=== PATIENT | female | born 1965 | race Caucasian/White ===

== ENCOUNTER → 2021-10-13 11:46 | Outpatient (CLI) | payer BC, SELFPAY ==
--- NOTE | ~2021-10-13 | MM_ITS ---
EXAMINATION: MM screening basilia BI w brando HISTORY: Screening mammogram TECHNIQUE: Craniocaudal and mediolateral oblique 3-D tomosynthesis images were obtained and synthetic 2-D images were generated. CAD analysis was submitted and interpreted. COMPARISON: 09/17/2015, 07/05/2014 bilateral screening mammogram examinations BREAST PARENCHYMAL COMPOSITION: The breasts are heterogeneously dense, which may obscure small masses . FINDINGS: There is no evidence of suspicious mass, calcification, or architectural distortion to sugg est malignancy in either breast. There has been no suspicious interval change. IMPRESSION: 1. No mammographic evidence of malignancy. 2. Recommend routine screening mammography in one year. BI-RADS Category 1: Negative Reviewed, dictated and finalized at location A. [facility]
== END ==
PROVIDERS: PCP Family Medicine; Visit Provider Obstetrics & Gynecology Gynecology
DX: Z12.31 Encounter for screening mammogram for malignant neoplasm of breast (principal)
CPT/HCPCS: 77063; 77067

== ENCOUNTER → 2022-05-20 09:28 | Outpatient (CLI) | payer BC, SELFPAY ==
--- NOTE | ~2022-05-20 | XR_ITS ---
EXAMINATION: XR chest 2V 05/20/2022 10:26 INDICATION: Cough PROCEDURE: 2 view chest COMPARISON: 06/14/2006 FINDINGS: The lungs are clear. The cardiomediastinal silhouette is within normal limits. There are no pleural effusions. There is no pneumothorax suspected. IMPRESSION: 1: NO ACUTE CARDIOPULMONARY DISEASE. Reviewed, dictated and finalized at location A.
== END ==
PROVIDERS: PCP Family Medicine; Visit Provider Family Medicine
DX: R05.9 Cough, unspecified (principal)
CPT/HCPCS: 71046

== ENCOUNTER → 2022-07-30 09:24 | Outpatient (CLI) | payer BC, SELFPAY ==
--- NOTE | ~2022-07-30 | DEXA_ITS ---
Bone Density Report Name: DEBORAH ARAIZA Age: 57 Sex: Female Ethnicity: White Date of : 1965 Indication: postmenopausal; screening for osteoporosis; height loss; history of glucocorticoids; Referring Provider: JHONATHAN CANALES Study: Bone densitometry was performed. Exam Date: July 30, 2022 Accession number: [id number] Bone Density: Region BMD T-score Z-score Classification AP Spine (L1-L4) 0.759 -2.6 -1.5 Osteoporosis Femoral Neck (Left) 0.618 -2.1 -1.0 Osteopenia Total Hip (Left) 0.735 -1.7 -1.0 Osteopenia Femoral Neck (Right) 0.587 -2.4 -1.3 Osteopenia Total Hip (Right) 0.743 -1.6 -0.9 Osteopenia Total Hip Mean 0.739 -1.7 -1.0 Osteopenia World Health Organization criteria for BMD impression classify patients as: Normal (T-score at or above -1.0), Osteopenia (T-score between -1.0 and -2.5), or Osteoporosis (T-score at or below -2.5). 10-year Fracture Risk: FRAX not reported because: Some T-score for Spine Total or Hip Total or Femoral Neck at or below -2.5 Clinical Information Provided by Patient: Has taken Glucocorticoids Has used the following medications: Prolia (i.e. denosumab), Calcium Patient maximum height was 59.5 Menopause Age: 53 No regular weight bearing exercise Does not regularly consume dairy products Drinks caffeinated beverages Onset of menses at age 13 Number of children 2 Impression: The patient has osteoporosis, based on the Total Spine T-score. The patient has risk factors, including: history of glucocorticoid therapy. Discussion: INCREASED RISK OF FRACTURE. BONE DENSITY IS UNDESIRABLY LOW AT ONE OR MORE SKELETAL SITES, CONSISTENT WITH POSTMENOPAUSAL OSTEOPOROSIS. This patient's lowest T-score meets the World Health Organization's (WHO) criteria for osteoporosis at one or more sites (T-score -2.5 or below). In untreated patients, the risk of osteoporotic fracture increases approximately two-fold for each 1.0 SD decrease in T-score. Low bone density is not the only risk factor for fracture; also consider factors such as patient's age, frailty or poor health, risk of falling, risk of injury, previous osteoporotic fracture, family history of osteoporosis, cigarette smoking, low body weight, etc. Not everyone with low bone mineral density has osteoporosis; osteomalacia and other metabolic bone disorders should also be considered. Patients who have osteoporosis should be evaluated for specific diseases and conditions (secondary causes) that may cause or contribute to bone loss. The [place] [employer] Endocrinologists (AACE) and National Osteoporosis Foundation (NOF) recommend pharmacologic intervention for all postmenopausal women whose T-score is in this range. The patient should follow a healthful lifestyle (good nutrition with adequate calcium and vitamin
== END ==
PROVIDERS: PCP Family Medicine; Visit Provider Obstetrics & Gynecology Gynecology
DX: M81.0 Age-related osteoporosis without current pathological fracture (principal); Z78.0 Asymptomatic menopausal state; M85.852 Other specified disorders of bone density and structure, left thigh; M85.851 Other specified disorders of bone density and structure, right thigh
CPT/HCPCS: 77080

== ENCOUNTER → 2023-01-05 11:20 | Outpatient (CLI) | payer BC, SELFPAY ==
--- NOTE | ~2023-01-05 | MM_ITS ---
EXAMINATION: MM screening basilia BI w brando HISTORY: Screening mammogram TECHNIQUE: Craniocaudal and mediolateral oblique 3-D tomosynthesis images were obtained and synthetic 2-D images were generated. CAD analysis was submitted and interpreted. COMPARISON: 10/13/2021, 09/2015 bilateral screening mammogram examinations BREAST PARENCHYMAL COMPOSITION: The breasts are heterogeneously dense, which may obscure small masses . FINDINGS: There is no evidence of suspicious mass, calcification, or architectural distortion to sugg est malignancy in either breast. There has been no suspicious interval change. IMPRESSION: 1. No mammographic evidence of malignancy. 2. Recommend routine screening mammography in one year. BI-RADS Category 1: Negative Reviewed, dictated and finalized at location A. [facility]
== END ==
PROVIDERS: PCP Family Medicine; Visit Provider Obstetrics & Gynecology Gynecology
DX: Z12.31 Encounter for screening mammogram for malignant neoplasm of breast (principal)
CPT/HCPCS: 77063; 77067

== ENCOUNTER → 2023-04-29 08:47 | Outpatient (CLI) | payer BC, SELFPAY ==
--- NOTE | ~2023-04-29 | US_ITS ---
EXAMINATION: US abdomen limited DATE: 04/29/2023 09:10 INDICATION: Abnormal levels of other serum enzymes TECHNIQUE: Multiple grayscale and Doppler ultrasound images of limited portions of the abdomen were o btained. COMPARISON: None available. FINDINGS: The visualized portions of the pancreas are normal. The liver is normal with normal echogen icity and echotexture. No surface nodularity. Normal hepatopetal flow in the main portal vein. The ga llbladder is normal normal size, with intraluminal stones. No wall thickening or pericholecystic flui d. The common bile duct measures 5 mm. There was no sonographic Harrison sign. IMPRESSION: Cholelithiasis, otherwise normal limited abdominal ultrasound findings. Reviewed, dictated and finalized at location K.
== END ==
PROVIDERS: PCP Family Medicine
DX: R74.8 Abnormal levels of other serum enzymes (principal); R74.01 Elevation of levels of liver transaminase levels; K80.20 Calculus of gallbladder without cholecystitis without obstruction
CPT/HCPCS: 76705

== ENCOUNTER 2024-01-17 00:59 | Day surgery (SDC) | payer BC, SELFPAY ==
[2023-11-24 09:50] VITALS: BMI 23.5
--- NOTE | 2023-11-25 10:18 | SUR.PREOP ---
Patient called regarding upcoming procedure. Reviewed preop instructions, appointment times, and procedure prep.
--- NOTE | 2023-11-25 10:19 | SUR.PREOP ---
Patient called regarding upcoming procedure. Reviewed preop instructions, appointment times, and procedure prep.
--- NOTE | 2023-11-28 10:10 | SUR.PREOP ---
Pt called stating that she has upper respiratory symptoms and needs to cancel her procedure for 11/29. Patient has a barky cough and slightly hoarse. Instructed patient to go see her PCP if her symptoms didn't improve or if she was short of breathe. Patient voiced understanding. Rescheduled for 01/03.
[2023-12-29 16:29] VITALS: BMI 23.5
--- NOTE | 2024-01-13 14:01 | SUR.PREOP ---
Patient called regarding upcoming procedure. Message left regarding preop instructions, appointment times, and procedure prep.
[2024-01-17 08:07] VITALS: BP 116/66; PULSE 68; RESP 16; TEMP 35.8; O2SAT 98; BMI 22.8
[2024-01-17] MEDS: LACTATED RINGERS 1,000 ML 150 ML IV CONT (08:25)
--- NOTE | 2024-01-17 10:11 | PM.HPGS ---
History of Present Illness History of Present Illness Consent: Risks, benefits, and alternatives have been discussed and questions answered. Patient agrees to proceed with procedure. Chief complaint: Abdom.distension(Gaseous), Epigastric pain Narrative: Aggie Vela is a 58 year old female with dyspepsia and nausea after eating, never had egd. Also constipation for which she is taking stool softeners, had colonoscopy 2016 with ? mild microscopic colitis Review of Systems Constitutional: Constitutional: Denies headache(s) and Denies weakness Eyes: Eyes: Denies blurry vision ENT: Reports Normal hearing present, Denies headache(s) and Denies neck pain Cardiovascular: Cardiovascular: Denies chest pain and Denies dyspnea Respiratory: Respiratory: Denies dyspnea Gastrointestinal: Gastrointestinal: Reports no additional gastrointestinal complaints Genitourinary: Genitourinary: Denies dysuria Musculoskeletal: Musculoskeletal: Denies neck pain Integumentary/Breasts: Skin/Breast: Denies dry skin Neurologic: Reports Normal hearing present, Denies headache(s) and Denies weakness Psychiatric: Psychiatric: Denies anxiety Endocrine: Endocrine: Denies change in body appearance Hematologic/Lymphatic: Hematologic/Lymphatic: Denies easy bleeding Allergic/Immunologic: Allergic/Immunologic: Denies urticaria PMFSH Past Medical History Medical History (Updated 11/22/23 @ 10:21 by Zaira Pantoja APRN) ADHD Altered bowel habits Bloating Colitis Dyspepsia Gallstones IBS (irritable bowel syndrome) Lupus Surgical History Surgical History (Updated 11/22/23 @ 10:21 by Zaira Pantoja APRN) Hx of bilateral cataract extraction Social History Social History Smoking status: Never smoker Alcohol intake: current Substance use: never Living arrangements: with family Spiritual care concerns: No Meds Home Medications and Allergies Home Medications Medication Instructions Recorded Confirmed Type albuterol sulfate 90 mcg/actuation 1 puff inhalation Q4H PRN 11/17/23 01/17/24 History aerosol inhaler Shortness Of Breath celecoxib 100 mg capsule (Celebrex) 100 mg PO DAILY 11/17/23 01/17/24 History cetirizine 10 mg capsule (Zyrtec) 10 mg PO DAILY 11/17/23 01/17/24 History denosumab 60 mg/mL subcutaneous 60 mg subcut [id number] 11/17/23 01/17/24 History syringe (Prolia) dextroamphetamine-amphetamine 20 10 - 20 mg PO DAILY 11/17/23 01/17/24 History mg tablet (Adderall) fluoxetine 10 mg capsule (Prozac) 10 mg PO DAILY 11/17/23 01/17/24 History minoxidil 2 % topical solution 1 ml topical DAILY 11/17/23 01/17/24 History (Rogaine) Align Pre And Pro 2 gummy PO DAILY PRN Constipation 11/24/23 01/17/24 History Nutrafol 4 cap PO DAILY 11/24/23 01/17/24 History ascorbic acid (vitamin C) 1,000 mg 1 g PO DAILY 11/24/23 01/17/24 History capsule biotin 5,000 mcg chewable tablet 5,000 mcg PO DAILY 11/24/23 01/17/24 History cholecalciferol (vitamin D3) 125 125 mcg PO DAILY 11/24/23 01/17/24 History mcg (5,000 unit) tablet (Vitamin D3) mecobalamin (vitamin B12) 1,000 1,000 mcg PO DAILY 11/24/23 01/17/24 History mcg chewable tablet polyethylene glycol 3350 17 17 g PO DAILY 11/24/23 01/17/24 History gram/dose oral powder (Miralax) Allergies Allergy/AdvReac Type Severity Reaction Status Date / Time erythromycin base Allergy Intermediate Hives Verified 01/17/24 08:14 Penicillins Allergy Intermediate Hives Verified 01/17/24 08:14 Vital Signs Vital Signs - 24 hr 01/17/24 08:07 Temperature 96.5 F L Pulse Rate 68 Respiratory Rate 16 Blood Pressure 116/66 Pulse Oximetry 98 Oxygen Delivery Room Air Exam Const: General: comfortable and no acute distress HENMT: Face/Nose/Sinus: Normal nares present Eyes: General: appearance normal, both eyes and all related structures Neck: Neck: no JVD Resp: Auscultation: clear to auscultation bilaterally Cardio: Rate: regular ra
--- NOTE | 2024-01-17 10:24 | SUR.OPER ---
EGD START: 1017; END: 1020. COLONOSCOPY START: 1024; END: 1032.
[2024-01-17 10:35] VITALS: BP 103/62; PULSE 67; RESP 15; O2SAT 100
[2024-01-17 10:45] VITALS: BP 111/72; PULSE 63; RESP 15; O2SAT 100
[2024-01-17 10:55] VITALS: BP 122/75; PULSE 60; RESP 22; O2SAT 100
--- NOTE | 2024-01-18 13:01 | WPDANESEPPF ---
Anes - Initial Pre Proc Eval Procedure: Operation Date: 01/17/24 09:30 Proposed Procedures p Esophagogastroduodenoscopy & Colonoscopy - Woody Reyes MD Date/Time: 01/18/24 13:01 Surgeon: Woody Reyes MD Pre Op Diagnosis: Abdom.distension(Gaseous), Epigastric pain Patient Data Age: 58 Gender: F Height: 1.5 m Weight: 51.3 kg Last Vital Signs Temp 96.5 F L 01/17/24 08:07 Pulse 60 01/17/24 10:55 Resp 22 H 01/17/24 10:55 BP 122/75 01/17/24 10:55 Pulse Ox 100 01/17/24 10:55 O2 Del Method Room Air 01/17/24 10:55 Allergies Allergy/AdvReac Type Severity Reaction Status Date / Time erythromycin base Allergy Intermediate Hives Verified 01/17/24 08:14 Penicillins Allergy Intermediate Hives Verified 01/17/24 08:14 Home Medications Medication Instructions Recorded Confirmed Type albuterol sulfate 90 mcg/actuation 1 puff inhalation Q4H PRN 11/17/23 01/17/24 History aerosol inhaler Shortness Of Breath celecoxib 100 mg capsule (Celebrex) 100 mg PO DAILY 11/17/23 01/17/24 History cetirizine 10 mg capsule (Zyrtec) 10 mg PO DAILY 11/17/23 01/17/24 History denosumab 60 mg/mL subcutaneous 60 mg subcut [id number] 11/17/23 01/17/24 History syringe (Prolia) dextroamphetamine-amphetamine 20 10 - 20 mg PO DAILY 11/17/23 01/17/24 History mg tablet (Adderall) fluoxetine 10 mg capsule (Prozac) 10 mg PO DAILY 11/17/23 01/17/24 History minoxidil 2 % topical solution 1 ml topical DAILY 11/17/23 01/17/24 History (Rogaine) Align Pre And Pro 2 gummy PO DAILY PRN Constipation 11/24/23 01/17/24 History Nutrafol 4 cap PO DAILY 11/24/23 01/17/24 History ascorbic acid (vitamin C) 1,000 mg 1 g PO DAILY 11/24/23 01/17/24 History capsule biotin 5,000 mcg chewable tablet 5,000 mcg PO DAILY 11/24/23 01/17/24 History cholecalciferol (vitamin D3) 125 125 mcg PO DAILY 11/24/23 01/17/24 History mcg (5,000 unit) tablet (Vitamin D3) mecobalamin (vitamin B12) 1,000 1,000 mcg PO DAILY 11/24/23 01/17/24 History mcg chewable tablet polyethylene glycol 3350 17 17 g PO DAILY 11/24/23 01/17/24 History gram/dose oral powder (Miralax) Patient hx anesthesia problems: none Family hx anesthesia problems: none Results Review: All pre-operative results and documents have been reviewed as part of the pre-operative evaluation. PMFSH Past Medical History Medical History (Updated 11/22/23 @ 10:21 by Zaira Pantoja APRN) ADHD Altered bowel habits Bloating Colitis Dyspepsia Gallstones IBS (irritable bowel syndrome) Lupus Surgical History Surgical History (Updated 11/22/23 @ 10:21 by Zaira Pantoja APRN) Hx of bilateral cataract extraction Social History Social History Smoking status: Never smoker Alcohol intake: current Substance use: never Living arrangements: with family Spiritual care concerns: No Anes - Eval Final PreProcedure Day of Procedure 01/18/24 13:01 Patient weight: normal Heart: regular rate and rhythm Lungs: clear to auscultation Airway: Mallampati scale class II Neurological: alert and oriented Last oral intake: >/= 8 hours ASA classification: II Emergent: no Anesthetic plan: proceed Anesthesia type and monitoring: general GIVS and standard monitoring Results Review: All pre-operative results and documents have been reviewed as part of the pre-operative evaluation. Informed Consent: The patient's anesthetic plan and its attendant risks and benefits were discussed with the patient/family/POA. Questions were solicited and answers provided to the satisfaction of the patient/family/POA.
== END 2024-01-17 11:02 | disposition home or self-care (01) ==
PROVIDERS: PCP Family Medicine; Visit Provider Internal Medicine Gastroenterology
PROC: 0DJ08ZZ Inspection of Upper Intestinal Tract, Via Natural or Artificial Opening Endoscopic (ICD-10-PCS; CPT 43235; principal; 2024-01-17 09:30)
DX: K52.832 Lymphocytic colitis (principal); K64.8 Other hemorrhoids; K29.50 Unspecified chronic gastritis without bleeding; B96.81 Helicobacter pylori [H. pylori] as the cause of diseases classified elsewhere; K80.20 Calculus of gallbladder without cholecystitis without obstruction; F90.9 Attention-deficit hyperactivity disorder, unspecified type; M32.9 Systemic lupus erythematosus, unspecified; Z79.51 Long term (current) use of inhaled steroids
CPT/HCPCS: 45380; 43239; 88305; 88342; J2405; J2704; J3010; J7120

== ENCOUNTER 2024-02-28 11:09 | Outpatient (CLI) | payer BC, SELFPAY ==
--- NOTE | ~2024-02-28 | MM_ITS ---
EXAMINATION: MM screening basilia BI w brando HISTORY: Screening TECHNIQUE: Craniocaudal and mediolateral oblique 3-D tomosynthesis images were obtained and synthetic 2-D images were generated. CAD analysis was submitted and interpreted. COMPARISON: Comparison to multiple prior studies sequentially, with oldest reviewed study dated 09/16. BREAST PARENCHYMAL COMPOSITION: Not dense: There are scattered areas of fibroglandular density. FINDINGS: There are developing nodular asymmetries medially in the left breast on CC view. There is a developing high density nodule in the lower aspect of the right breast on MLO view, middle third. IMPRESSION: 1. Developing left breast asymmetries and right breast mass. 2. Additional mammographic views and possible breast ultrasound are recommended. BI-RADS CATEGORY 0 - INCOMPLETE STUDY, NEED ADDITIONAL IMAGING EVALUATION. Reviewed, dictated and finalized at location B. IMPRESSION: 1. Developing left breast asymmetries and right breast mass. 2. Additional mammographic views and possible breast ultrasound are recommended . BI-RADS CATEGORY 0 - INCOMPLETE STUDY, NEED ADDITIONAL IMAGING EVALUATION.
== END 2024-02-28 11:10 ==
LOC: MICIMG 11:09
PROVIDERS: PCP Family Medicine; Visit Provider Obstetrics & Gynecology Gynecology
DX: Z12.31 Encounter for screening mammogram for malignant neoplasm of breast (principal); R92.8 Other abnormal and inconclusive findings on diagnostic imaging of breast
CPT/HCPCS: 77063; 77067

== ENCOUNTER 2024-02-28 11:46 | Outpatient (CLI) | payer BC, SELFPAY ==
--- NOTE | 2024-02-28 12:08 | ECG_ITS ---
SEE SCANNED COPY FOR CONFIRMED REPORT MTDD
[2024-02-28 12:43] LABS: Alanine Aminotransferase 20 U/L (6-35); Albumin Level 3.9 g/dL (3.5-5.1); Alkaline Phosphatase 176 U/L (38-126); Amylase 70 U/L (30-110); Aspartate Amino Transferase 30 U/L (14-36); Bilirubin,Total 0.5 mg/dL (0.2-1.3); Lipase 80 U/L (23-300)
== END 2024-02-28 11:47 | disposition home or self-care (01) ==
LOC: ANHSURGERY 11:54
PROVIDERS: PCP Family Medicine; Visit Provider Surgery
DX: K80.10 Calculus of gallbladder with chronic cholecystitis without obstruction (principal); Z01.818 Encounter for other preprocedural examination
CPT/HCPCS: 36415; 80076; 82150; 83690; 93005

== ENCOUNTER 2024-02-29 00:18 | Day surgery (SDC) | payer BC, SELFPAY ==
[2024-02-21 10:26] VITALS: BMI 23.8
--- NOTE | 2024-02-21 10:32 | PC.NURSE ---
Report to the Outpatient Waiting Room, entrance under the green pavilion located off [address], at time 10:00 on date 02/29/24. Planned Procedure Time: 12:00. Time changes happen often and if your time is changed the preop area will call you the afternoon before. - You and your visitor will be asked to self-screen and do not enter if you have any COVID symptoms. - A mask is optional within the hospital at this time. Patients may have clear liquids (water, carbonated beverages, clear teas, apple juice) until 3 hours prior to surgery with a maximum of 20 ounces. - No food from midnight until time of surgery Take the following medications with a SIP of water the morning of surgery: INHALER IF NEEDED DO NOT STOP ANY OF YOUR OTHER PRESCRIPTION MEDICATIONS PRIOR TO SURGERY ?EXCEPT THE FOLLOWING Medications to discontinue per physician: VITAMINS/SUPPLEMENTS Date to take last dose: 02/25/24 Please no make-up, nail chinese, hairspray, perfume, deodorant, or body powder the day of surgery. No jewelry (including any body piercings) or valuables the day of surgery, leave them at home. Please take a shower or bath the night before, or the morning of, surgery with an antibacterial soap. Wear comfortable, loose fitting clothing. - Jewelry must be removed prior to entering the operating room. Rings and piercings that are not removed may be cut off. - The hospital will not accept responsibility for valuables. - Please leave all valuables, including medications, at home the day of surgery. If you are going home after surgery, a licensed home delivery driver must drive you home. - NO public transportation without another adult if you receive anesthesia. - We recommend that an adult stay with you for 24 hours following discharge. - We also recommend that you do not drive, make important decision, drink alcoholic beverages, or take any drugs that were not prescribed by your health care provider for at least 24 hours after your discharge time. Follow any additional instructions given to you from your surgeon. If you or anyone in your household have experienced Covid symptoms in the past week, please notify your surgeon or the nurse liaison at the phone number below for possible testing. Telephone instructions given to AGATA CABRERA and asked if any additional questions and then verbalized understanding. Patient advised to call surgeon office or pre surgery nurse liaison [phone] if any additional questions.
[2024-02-29] VITALS (9 sets, daily range): BP systolic 103–141; BP diastolic 63–76; PULSE 56–77; RESP 12–16; TEMP 36.4–36.7; O2SAT 94–100
[2024-02-29] MEDS: ACETAMINOPHEN 500 MG TABLET 1000 MG PO (10:16)
[2024-02-29] MEDS: LACTATED RINGERS 1,000 ML 30 ML IV CONT ×2 (10:43→14:05)
[2024-02-29] MEDS: KETOROLAC 15 MG/ML VIAL (*BKC) IV PUSH (10:44)
--- NOTE | 2024-02-29 11:57 | WPDANESEPPF ---
Anes - Initial Pre Proc Eval Procedure: Operation Date: 02/29/24 12:00 Proposed Procedures p Laparoscopic Cholecystectomy - Irish Aleman MD Date/Time: 02/29/24 11:57 Surgeon: Irish Aleman MD Pre Op Diagnosis: chr calculous Cholecystitis Patient Data Age: 58 Gender: F Height: 1.47 m Weight: 52.3 kg Last Vital Signs Temp 36.4 C 02/29/24 10:38 Pulse 77 02/29/24 10:38 Resp 16 02/29/24 10:38 BP 110/71 02/29/24 10:38 Pulse Ox 96 02/29/24 10:38 O2 Del Method Room Air 02/29/24 10:38 Allergies Allergy/AdvReac Type Severity Reaction Status Date / Time erythromycin base Allergy Intermediate Hives Verified 02/29/24 10:13 Penicillins Allergy Intermediate Hives Verified 02/29/24 10:13 Home Medications Medication Instructions Recorded Confirmed Type albuterol sulfate 90 mcg/actuation 1 puff inhalation Q4H PRN 11/17/23 02/21/24 History aerosol inhaler Shortness Of Breath celecoxib 100 mg capsule (Celebrex) 100 mg PO DAILY 11/17/23 02/21/24 History cetirizine 10 mg capsule (Zyrtec) 10 mg PO DAILY 11/17/23 02/21/24 History denosumab 60 mg/mL subcutaneous 60 mg subcut [id number] 11/17/23 02/21/24 History syringe (Prolia) dextroamphetamine-amphetamine 20 10 - 20 mg PO DAILY 11/17/23 02/21/24 History mg tablet (Adderall) fluoxetine 10 mg capsule (Prozac) 10 mg PO HS 11/17/23 02/21/24 History minoxidil 2 % topical solution 1 ml topical DAILY 11/17/23 02/21/24 History (Rogaine) Nutrafol 4 cap PO DAILY 11/24/23 02/21/24 History ascorbic acid (vitamin C) 1,000 mg 1 g PO DAILY 11/24/23 02/21/24 History capsule biotin 5,000 mcg chewable tablet 5,000 mcg PO DAILY 11/24/23 02/21/24 History cholecalciferol (vitamin D3) 125 125 mcg PO DAILY 11/24/23 02/21/24 History mcg (5,000 unit) tablet (Vitamin D3) mecobalamin (vitamin B12) 1,000 1,000 mcg PO DAILY 11/24/23 02/21/24 History mcg chewable tablet polyethylene glycol 3350 17 17 g PO DAILY 11/24/23 02/21/24 History gram/dose oral powder (Miralax) Patient hx anesthesia problems: none Family hx anesthesia problems: other (slow to awaken) Results Review: All pre-operative results and documents have been reviewed as part of the pre-operative evaluation. [facility] Past Medical History Medical History ADHD Altered bowel habits Bloating Colitis Dyspepsia Gallstones Helicobacter positive gastritis IBS (irritable bowel syndrome) Lupus Surgical History Surgical History Hx of bilateral cataract extraction Social History Social History Smoking status: Never smoker Alcohol intake: current Alcohol use details: VERY RARE Substance use: never Substance use type: does not use Living arrangements: with family Spiritual care concerns: No Anes - Eval Final PreProcedure Day of Procedure 02/29/24 11:57 Patient weight: normal Heart: regular rate and rhythm Lungs: clear to auscultation Airway: Mallampati scale class II Neurological: alert and oriented Last oral intake: >/= 8 hours ASA classification: III Emergent: no Anesthetic plan: proceed Anesthesia type and monitoring: general ETT and standard monitoring Results Review: All pre-operative results and documents have been reviewed as part of the pre-operative evaluation. Informed Consent: The patient's anesthetic plan and its attendant risks and benefits were discussed with the patient/family/POA. Questions were solicited and answers provided to the satisfaction of the patient/family/POA.
--- NOTE | 2024-02-29 13:10 | WPDHPUPDATE1 ---
History and Physical Update Update Date/Time: 02/29/24 13:10 History and Physical has been reviewed, including an updated exam of the patient. There are NO changes in the patient's condition. Risks, benefits, and alternatives have been discussed and questions answered. Patient agrees to proceed with procedure.
[2024-02-29] MEDS: ceFAZolin 2 GM/D5W 50 ML 2 GM/50 ML BAG IVPB (13:28)
[2024-02-29] MEDS: BUPIVACAINE/EPINEPHRINE 0.5% 30 ML VIAL INFILTRATE (13:48)
--- NOTE | 2024-02-29 14:02 | P.OP_ITS ---
Procedure Note - Detailed Date of Procedure 02/29/24 Pre-op Diagnosis Chronic cholecystitis, cholelithiasis Post-op Diagnosis Same Procedure Performed Laparoscopic cholecystectomy Surgeon Irish Aleman MD Anesthesia General Indications 58-year-old female presenting to the office with chronic cholecystitis, ch olelithiasis Findings Cholecystitis with cholelithiasis Description of Procedure The patient was taken to the operating room placed in the supine position. After adequate induction of general anesthesia, the patient was prepped and draped in normal sterile fashion. A time-out was then performed to verify the patient's identity as well as the procedure being performed. I then made a 5 mm incision in the infraumbilical region. Through this, a Veress needle was placed into the peritoneal cavity and CO2 gas was then insufflated. After adequate pneumoperitoneum was achieved, the Veress needle was removed and a 5 mm optiview trocar was placed through this incision under direct visualization. I then placed the laparoscope through this trocar site and under direct visualization placed a further 12 mm subxiphoid port as well as 2 additional 5 mm ports in the right upper abdomen. The gallbladder was then identified and was noted to be moderately inflamed and distended. I was able to place a grasper at the dome of the gallbladder and this was retracted anterior and cephalad up over the liver. A 2nd retractor was then placed at the infundibulum and retracted laterally, this allowed visualization of the triangle of Calot. I then was able to visualize the cystic duct in its entirety from its proximal insertion into the gallbladder, to its distal junction with the common hepatic/common bile duct junction. At this point, I carefully skeletonized the proximal cystic duct with the [place] dissector. I then clipped and transected the proximal cystic duct. Next I visualized the cystic artery. Again the artery was skeletonized, clipped, and transected. I then used the Bovie cautery to take down the peritoneal attachments of the gallbladder off the liver bed. This was somewhat difficult given the amount of inflammation in the posterior space. Once the gallbladder specimen was completely detached, an endo-pouch was placed through the 12 mm port site. I then placed the gallbladder specimen into the Endo pouch and removed the endo-pouch from the 12 mm port site. The specimen will now be sent to pathology for further review. I then copiously irrigated the right upper quadrant. Some mild oozing was noted in the liver bed and this was controlled with the bovie cautery. Hemostasis was noted in the liver bed, the clips were noted to be in good position on both the cystic duct stump and the cystic artery stump. No other pathology was noted in the right upper quadrant. I then moved the laparoscope to the subxiphoid port. No iatrogenic injury or other pathology was noted in the lower abdomen. I then closed the 12 mm trocar site under direct visualization using the Srinivas cone and 0 Vicryl suture. At this point, the abdomen was desufflated and all ports removed. All port sites were then closed with 4.O Monocryl subcuticular sutures. Dermabond was placed on each incision. The patient tolerated the procedure well, was extubated in the operating room postoperative and will be transferred to the recovery room in stable condition Estimated Blood Loss 10 Drains No Packing No Pathology Yes Complications No immediate complications Condition Stable Disposition PACU [facility] Billing Surgery - Charge Forward: Surgery Billing
[2024-02-29] MEDS: fentaNYL CITRATE INJ (*CRX) 100 MCG/2 ML VIAL 25 MCG IV PUSH ×2 (14:45→14:50)
[2024-02-29] MEDS: ONDANSETRON INJ 4 MG/2 ML VIAL IV PUSH (15:23)
== END 2024-02-29 16:11 | disposition home or self-care (01) ==
PROVIDERS: PCP Family Medicine; Visit Provider Surgery
PROC: 0FT44ZZ Resection of Gallbladder, Percutaneous Endoscopic Approach (ICD-10-PCS; CPT 47562; principal; 2024-02-29 12:00)
DX: K80.10 Calculus of gallbladder with chronic cholecystitis without obstruction (principal); Z79.51 Long term (current) use of inhaled steroids; F90.9 Attention-deficit hyperactivity disorder, unspecified type; M32.9 Systemic lupus erythematosus, unspecified
CPT/HCPCS: 47562; 88304; A9270; J0690; J1100; J1885; J2250; J2405; J2704; J3010; J7030; J7120

== ENCOUNTER 2024-08-28 13:53 | Outpatient (CLI) | payer BC, SELFPAY ==
--- NOTE | ~2024-08-28 | DEXA_ITS ---
Bone Density Report Name: DEBORAH ARAIZA Age: 59 Sex: Female Ethnicity: White Date of : 1965 Indication: postmenopausal; screening for osteoporosis; prior fracture; Referring Provider: Mare Larson Study: Bone densitometry was performed. Exam Date: August 28, 2024 Accession number: [id number] Bone Density: Region BMD T-score Z-score Classification AP Spine(L1-L4) 0.783 -2.4 -1.1 Osteopenia Femoral Neck (Left) 0.593 -2.3 -1.1 Osteopenia Total Hip (Left) 0.774 -1.4 -0.5 Osteopenia Femoral Neck (Right) 0.592 -2.3 -1.1 Osteopenia Total Hip (Right) 0.786 -1.3 -0.4 Osteopenia Femoral Neck Mean 0.592 -2.3 -1.1 Osteopenia Total Hip Mean 0.780 -1.3 -0.5 Osteopenia World Health Organization criteria for BMD impression classify patients as: Normal (T-score at or above -1.0), Osteopenia (T-score between -1.0 and -2.5), or Osteoporosis (T-score at or below -2.5). 10-year Fracture Risk: FRAX not reported because: Treated for osteoporosis Clinical Information Provided by Patient: Has had a low trauma fracture Is being treated for osteoporosis Has used the following medications: Prolia (i.e. denosumab), Vitamin D Patient maximum height was 58 Menopause Age: 51 No regular weight bearing exercise Drinks caffeinated beverages Onset of menses at age 13 Number of children 2 Impression: The patient has low bone mass, based on the Total Spine T-score. The patient has risk factors, including: previous fracture. Discussion: It is important to ask patients whether they are taking their medications and to encourage continued and appropriate compliance with their osteoporosis therapies to reduce fracture risk. It is also important to review their risk factors and encourage appropriate calcium and vitamin D intakes, exercise, fall prevention and other lifestyle measures. Follow-Up: Consider a repeat BMD and Vertebral Fracture Assessment (VFA) exam in 2 years or sooner if medically necessary, to reassess this patient's status. Reported by: MARCO on 08/28/2024 2:18:00 PM. Reviewed, dictated and finalized at location AEileen ESTRADA
== END 2024-08-28 13:54 | disposition home or self-care (01) ==
LOC: CHSIMG 13:56
PROVIDERS: PCP Family Medicine; Visit Provider Obstetrics & Gynecology Gynecology
DX: Z78.0 Asymptomatic menopausal state (principal); M85.89 Other specified disorders of bone density and structure, multiple sites
CPT/HCPCS: 77080

== ENCOUNTER 2025-02-27 12:04 | Outpatient (CLI) | payer BC, SELFPAY ==
--- NOTE | ~2025-02-27 | MM_ITS ---
EXAMINATION: MM screening basilia BI w brando HISTORY: Screening TECHNIQUE: Craniocaudal and mediolateral oblique 3-D tomosynthesis images were obtained and synthetic 2-D images were generated. CAD analysis was submitted and interpreted. COMPARISON: Comparison to multiple prior studies sequentially, with oldest reviewed study dated 02/2015. BREAST PARENCHYMAL COMPOSITION: Not dense: There are scattered areas of fibroglandular density. FINDINGS: There is no evidence of suspicious mass, calcification, or architectural distortion to sugg est malignancy in either breast. There has been no suspicious interval change. IMPRESSION: 1. No mammographic evidence of malignancy. 2. Recommend routine screening mammography in one year. BI-RADS Category 1: Negative Reviewed, dictated and finalized at location B.
== END 2025-02-27 12:05 | disposition home or self-care (01) ==
LOC: MICIMG 12:06
PROVIDERS: PCP Obstetrics & Gynecology Gynecology; Visit Provider Family Medicine
DX: Z12.31 Encounter for screening mammogram for malignant neoplasm of breast (principal)
CPT/HCPCS: 77063; 77067

== ENCOUNTER 2025-06-24 12:02 | Outpatient (CLI) | payer BC, SELFPAY ==
--- OUTSIDE RECORDS SUMMARY | 2025-06-24 12:06 | XMS_ITS | Clinical Summary ---
Author Organization [facility] [address] [facility] lt Address [address] [place] [address] Care Team Providers Care Wire Transfer Clerk Name Role Phone Mario Small MD Primary Care Provider [phone] [phone] Allergies Active Allergy Reactions Criticality Noted Date Comments Penicillins Medications dextroamphetami ne-amphetamine (ADDERALL) 20 mg tablet take 1 tablet by oral route every day before breakfast 0 0 5 Active cetirizine (ZyrTEC) 10 mg tablet Take 1 tablet (10 mg total) by mouth daily Active albuterol HFA (ProAir HFA) 90 mcg/actuation inhaler Inhale 2 puffs every 4 (four) hours as needed for wheezing or shortness of breath 8.5 g 2 Active chlorpheniramin e-acetaminophen 2-325 mg tablet Take 1 tablet by mouth 2 (two) times a day 80 tablet 3 Active denosumab (PROLIA) 60 mg/mL syringe Inject 1 mL (60 mg total) under the skin once for 1 dose 1 mL 4 Active calcium acetate,phospha t bind, (PHOSLO) 667 mg tablet Take 2 tablets (1,334 mg total) by mouth 3 (three) times a day with meals Active Active Problems Problem Noted Date Diagnosed Date Iron deficiency 12/18/2024 Assessment & Plan (12/18/2024 2:38 PM PRACTICE PERFORMANCE MANAGER): Continues to follow response. WIll monitor response. NO side effects noted. Check iron levels. Polyarthralgia 12/18/2024 Assessment & Plan (12/18/2024 2:38 PM PRACTICE PERFORMANCE MANAGER): Continue to follow response. NO change at the present time. S/P cholecystectomy 12/18/2024 Assessment & Plan (12/18/2024 2:39 PM PRACTICE PERFORMANCE MANAGER): No dumping. Stable at the present itme. WIll monitor response. Lipid screening 09/11/2024 Palpitations 02/02/2023 Assessment & Plan (03/22/2023 11:29 AM CDT): PVCs and PACs. Low burden but symptomatic. LV function preserved. Reassured pt that her palpitations reflect benign arrhythmia. I offered suppressive medical therapy if desired, but counseled her that this would be for symptoms only. She is comfortable avoiding medications for now. --F/u with PCP --Pt may call for prescription for BB or CCB PRN for symptoms Assessment & Plan (02/02/2023 8:21 PM CDT): Probable symptomatic premature ventricular contractions. Kardia tracings do show PVCs correlating with symptoms. Union unclear. Recommend ambulatory monitoring to clarify mechanism and burden. Will also arrange for imaging to r/o structural heart disease. Management options depend on burden and may include observation, medical therapy or catheter ablation. --30d event monitor --Transthoracic echocardiogram --F/u 6 weeks to reassess Polyarthropathy 01/29/2018 Synovitis 03/30/2014 Overview (02/16/2017): SYNOVITIS NOS Encounters Date Type Department Care Team Description 05/28/2025 Telephone [facility] [address] [place] [address] Mario Small MD Medical Question/Miscellaneous from Last 3 Months Immunizations Immunization Administration Dates Next Due Hep A / Hep B 03/07/2018 Hep B, Unspecified 10/07/2017 Influenza, Quadrivalent, Spl it, Preservative Free, Intramuscular 07/22/2020 Influenza, Split 08/23/2012 Influenza, Unspecified 08/14/2024,2023(Deferred: Patient Refused),11/14/2022(Deferred: Patient Refused),11/14/2021(Deferred: Patient Refused),09/15/2021,11/14/2020(Deferre d: Patient Refused),01/27/2018(Deferred: Patient decision) Tdap 03/14/2017,07/12/2011 Surgical History Surgery Date Site/Laterality Comments EYE SURGERY CATARACT EXTRACTION 2004 Medical History Medical History Date Comments Hx Other Medical autoimmune pack ages Hx Other Medical ADD; Comments: COURT 01/23/2015 - Anxiety disorder Anxiety Osteoporosis Arthritis ? Cataract 2004 Depression Oct 2021 Hypertension 06/2022 Autoimmune disease 1998? Family History Medical History Relation Name Comments Cancer Father Cirilo Short Diabetes Father Cirilo Short Hypertension Father Cirilo Short Memory loss Father's Brother Merhoang Short Clotting disorder Maternal Grandfather Everardo Gar Arthritis Mother Maribell Torres Breast cancer Mother Maribell Torres Cancer Mother Maribell Torres Depression Mother Maribell Torres Diabetes Mother Maribell Torres Heart attack Mother Maribell Torres Heart disease Mother Maribell Torres Stroke Mother Maribell Torres Rheum arthritis Mother's Sister 2 RA; Clotting disorder Paternal Grandfather Michael Short Cancer Sister 1 Kaylene Short Diabetes Sister 1 Kaylene Short Diabetes Sister 2 Rena Garcia Diabetes Sister 3 Ventura Fleming Endometrial cancer Neg Hx Ovarian cancer Neg Hx Thyroid cancer Neg Hx Relation Name Status Comments Father Cirilo Short Father's Brother Merhoang Short Maternal Grandfather Everardo Veleze Mother Maribell Torres Mother's Sister 1 Alive Mother's Sister 2 Paternal Grandfather Michael Short Sister 1 Kaylene Short Sister 2 Rena Garcia Sister 3 Ventura Fleming Social History Tobacco Use Types Packs/Day Years Used Date Smoking Tobacco: Never Smokeless Tobacco: Never Tobacco Cessation:Counseling Given: Not Answered Alcohol Use Standard Drinks/Week Comments Yes 0 (1 standard drink = 0.6 oz pur e alcohol) PHQ-2 Answer Date Recorded PHQ-2 Total Score (If total score is 3 or more points, staff should administer the PHQ-9) 0 12/18/2024 Comments No Sex and Gender Information Value Date Recorded Sex Assigned at Not on file Legal Sex Female 11:31 PM PRACTICE PERFORMANCE MANAGER Gender Identity Not on file Sexual Orientation Not on file Obstetrics History Para Term AB IAB SAB Ectopic Multiple Livin g Live Births 2 2 2 Date Outcome GA Total Labor Labor/2nd/3rd Weight Sex Type Anes PTL Nettie A1 A5 Name Clin Term Term Last Filed Vital Signs Vital Sign Reading Time Taken Comments Blood Pressure 124/74 12/18/2024 2:05 PM PRACTICE PERFORMANCE MANAGER Pulse 78 12/18/2024 2:05 PM PRACTICE PERFORMANCE MANAGER Temperature 36.8 C (98.2 F) 12/18/2024 2:05 PM PRACTICE PERFORMANCE MANAGER Respiratory Rate 16 06/01/2022 3:11 PM CDT Oxygen Saturation 98% 12/18/2024 2:05 PM PRACTICE PERFORMANCE MANAGER Inhaled Oxygen Concentration - - Weight 54 kg (119 lb 1.6 oz) 12/18/2024 2:05 PM PRACTICE PERFORMANCE MANAGER Height 147.3 cm (4' 10) 12/18/2024 2:05 PM PRACTICE PERFORMANCE MANAGER Body Mass Index 24.89 12/18/2024 2:05 PM PRACTICE PERFORMANCE MANAGER Plan of Treatment Health Maintenance Due Date Last Done Comments Cervical Cancer Screening 1965 Hepatitis C Screening 1965 Zoster Vaccine (1 of 2) 2016 Regular Well Visit/Exam 18-64 10/23/2020 10/23/2019 Influenza Vaccine (#1) 2025 , 09/15/2021, 07/22/2020, Additional history exists Depression Screening 12/18/2025 12/18/2024, 09/11/2024, 01/03/2024, Additional history exists Breast Cancer Screening-Mammogram 02/27/2026 02/27/2025, 02/28/2024, 01/05/2023, Additional history exists Colon Cancer Screening-Colonoscopy 12/22/2026 12/22/2016, 12/22/2016, 12/22/2016 DTaP/Tdap/Td Vaccine (3 - Td or Tdap) 03/14/2027 03/14/2017, 07/12/2011 Colon Cancer Screening-CT Colonography Discontinued 12/22/2016, 12/22/2016, 12/22/2016 Colon Cancer Screening-DNA Stool Discontinued 12/22/2016, 12/22/2016, 12/22/2016 Colon Cancer Screening-FIT Discontinued 12/22, 12/22/2016, 12/22/2016 Colon Cancer Screening-Sigmoidoscopy Discontinued 12/22/2016, 12/22/2016, 12/22/2016 Hepatitis B Screening Completed 03/07/2018, 017 Pneumococcal vaccine <65 Aged Out No longer eligible based on patient's age to complete this topic Procedures Procedure Name Priority Date/Time Associated Diagnosis Comments SCREENING MAMMOGRAM BILATERAL W CHOCO Schedule Routine, Read Routine (OP Routine) 02/27/2025 12:35 PM CDT COLONOSCOPY IMAGES 12/22/2016 from Last 3 Months or Most Recently Relevant to Health Maintenance Results * Screening Mammogram Bilateral W Choco (02/27/2025 12:35 PM CDT) Anatomical Region Laterality Modality Breast Bilateral Mammography 02/27/2025 12:3 5 PM CDT Historical Provider IMG MAMMO PROCEDURES Brittany l Result * COLONOSCOPY IMAGES (12/22/2016) Anatomical Region Laterality Modality Other Narrative 12/22/2016 Ordered by an unspecified provider. Historical Provider GI PROCEDURE ORDERABLES F inal Result from Last 3 Months or Most Recently Relevant to Health Maintenance Insurance [facility] ANTHEM PREF OPTIONS OR [facility] ANTH PREF OPTIONS OR Care Teams Wire Transfer Clerk Relationship Specialty Start Date End Date Mario Small MD [address] [place] [address] [facility] - General 02/11/17
--- OUTSIDE RECORDS SUMMARY | 2025-06-24 12:06 | XMS_ITS | Clinical Summary ---
Author Organization [facility] Address [address] [place] [address] Care Team Providers Care Sander Wooden Pencils Name Role Phone Mario Small MD Primary Care Provider [phone] Source Comments [facility],non-owned Affiliates and Associated Physician Practices is amultiple site organization consisting of ambulatory clinics and hospital sitesin [place], [place], [place] and [place]. This disclosure is being madepursuant to the Care Everywhere program and may not contain all information available regarding this patient. Last updated 18.[facility] Allergies No known active allergies Immunizations Immunization Administration Dates Next Due TDAP (7yrs+) 03/14/2017 Social History Tobacco Use Types Packs/Day Years Used Date Smoking Tobacco: Never Assessed Comments Unknown Sex and Gender Information Value Date Recorded Sex Assigned at Not on file Legal Sex Female 4:25 PM CDT Gender Identity Not on file Sexual Orientation Not on file Plan of Treatment Health Maintenance Due Date Last Done Comments COLOGUARD (AGES 45-75) - COL ON CA SCREENING 1965 COLON MONITORING 1966 COLONOSCOPY - COLON CA SCREENING 1966 CT COLONOGRAPHY - COLON CA SCREENING 1966 Colorectal Cancer Screening 1966 FIT - COLON CA SCREENING 1966 FLEX SIG - COLON CA SCREENING 1966 LIPID TESTING 1965 MAMMOGRAM 1966 HIV SCREENING 1981 HEPATITIS C SCREENING 06/13/1984 HEPATITIS B VACCINE (1 of 3 - 19+ 3-dose series) 1985 PAP SMEAR 1987 PNEUMOCOCCAL VACCINE 50+ (1 of 1 - PCV) 2016 ZOSTER VACCINE (1 of 2) 2016 COVID-19 VACCINE (2023-2 5 season) 2024 DEPRESSION SCREENING 11/14/2024 INFLUENZA VACCINE (#1) 2025 DTAP/TDAP/TD VACCINES (2 - T d or Tdap) 03/14/2027 03/14/2017 HIB VACCINE Aged Out No longer eligi ble based on patient's age to complete this topic HPV VACCINE Aged Out No longer eligi ble based on patient's age to complete this topic MENINGOCOCCAL (Group B) VACC INE SHARED DECISION-MAKING Aged Out No longer eligibl e based on patient's age to complete this topic MENINGOCOCCAL GROUPS A/C/Y/W VACCINE Aged Out No longer eligible b ased on patient's age to complete this topic [place] [address] [place] [address] [place] [address] [facility] SELF PAY NO INSURANCE Member Subscriber Plan / Payer (Ef fective for All Dates) Name:Deborah Garcia Member ID:Not on file Relation to Subscriber:Not on file Name:DEBORAH GARCIA Subscriber ID:Not on file (Home) Address: [address] [place] [address] Payer ID:Not on file Group ID:Not on file Type:Self Pay Address: [place], [place] [facility] SELF PAY NO INSURANCE Member Subscriber Plan / Payer (Ef fective for All Dates) Name:Deborah Garcia Member ID:Not on file Relation to Subscriber:Not on file Name:DEBORAH GARCIA Subscriber ID:Not on file (Home) Address: [address] [place] [address] Payer ID:Not on file Group ID:Not on file Type:Self Pay Address: [place], [place] [facility] SELF PAY NO INSURANCE Member Subscriber Plan / Payer (Ef fective for All Dates) Name:Deborah Garcia Member ID:Not on file Relation to Subscriber:Not on file Name:DEBORAH GARCIA Subscriber ID:Not on file (Home) Address: [address] [place] [address] Payer ID:Not on file Group ID:Not on file Type:Self Pay Address: [place], [place] [facility] SELF PAY NO INSURANCE Member Subscriber Plan / Payer (Ef fective for All Dates) Name:Deborah Garcia Member ID:Not on file Relation to Subscriber:Not on file Name:DEBORAH GARCIA Subscriber ID:Not on file (Home) Address: [address] [place] [address] Payer ID:Not on file Group ID:Not on file Type:Self Pay Address: [place], [place] [facility] SELF PAY NO INSURANCE Member Subscriber Plan / Payer (Ef fective for All Dates) Name:Deborah Garcia Member ID:Not on file Relation to Subscriber:Not on file Name:GARCIADEBORAH Subscriber ID:Not on file (Home) Address: [address] [place] [address] [place] [address] Payer ID:Not on file Group ID:Not on file Type:Self Pay Address: [place], [place] [facility] SELF PAY NO INSURANCE Member Subscriber Plan / Payer (Ef fective for All Dates) Name:GarciaThaoa Member ID:Not on file Relation to Subscriber:Not on file Name:DEBORAH GARCIA Subscriber ID:Not on file (Home) Address: [address] [place] [address] [place] [address] Payer ID:Not on file Group ID:Not on file Type:Self Pay Address: [place], [place] Care Teams Sander Wooden Pencils Relationship Specialty Start Date [place] [address] PCP - General Internal Medicine 03/14/17
--- OUTSIDE RECORDS SUMMARY | 2025-06-24 12:06 | XMS_ITS | Encounter Summary ---
Author Organization [facility] Address [address] [place] [address] Care Team Providers Care Screen Tacker Name Role Phone Mario Small MD Primary Care Provider [phone] Reason for Visit * Reason Onset Date Comments Medical Question/Miscellaneous 05/28/2025 Encounter Details Date Type Department Care Team (Late st Contact Info) Description 05/28/2025 [facility]phone [facility] [address] [address] Mario Small MD [address] [place] [address] Medical Question/Miscellaneous Social History Tobacco Use Types Packs/Day Years Used Date Smoking Tobacco: Never Smokeless Tobacco: Never Alcohol Use Standard Drinks/Week Comments Yes 0 (1 standard drink = 0.6 oz pur e alcohol) PHQ-2 Answer Date Recorded PHQ-2 Total Score (If total score is 3 or more points, staff should administer the PHQ-9) 0 12/18/2024 Comments No Sex and Gender Information Value Date Recorded Sex Assigned at Not on file Legal Sex Female 11:31 PM ROLLED GOLD PLATER Gender Identity Not on file Sexual Orientation Not on file documented as of this encounter Miscellaneous Notes * Telephone Encounter - Sarah Fleming MA - 05/28/2025 3:14 PM CDT See message encounter from today, Thanks * Telephone Encounter - Aggie Jimenez MA - 05/28/2025 9:23 AM CDT Medical Question/Miscellaneous Caller???s Concern: Patient is currently out of state, (she is in the state of [place]) She has a terrible rash on her face. She wanted a video visit however, CS advised that the doctor cannot practice in that state, she would have to be in [place]. So, she is going to send a message and a photo of her face to see if the doctor can send her something there. Does message need to be routed? Yes-FYI Only documented in this encounter Plan of Treatment Not on file documented as of this encounter Visit Diagnoses Not on filedocumented in this encounter Care Teams Screen Tacker Relationship Specialty Start Date [place] [address] PCP - General 02/11/17 documented as of this encounter
--- OUTSIDE RECORDS SUMMARY | 2025-06-24 12:06 | XMS_ITS | Clinical Summary ---
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 Gender Identity Not on file Sexual Orientation Not on file Plan of Treatment Health Maintenance Due Date Last Done Comments HPV/Cotest (21-29) 1987 HPV/Cotest (30-65) 1996 FIT-DNA Q 3 years 2011 FIT/FOBT Q 1 year 2011 Flex Sig/CT Colonography Q 5 years 2011 ZOSTER VACCINE (1 of 2) 2016 HEPATITIS B VACCINES (3 of 3 - 19+ 3-dose series) 05/02/2018 03/07/2018, 10/07/2017 CERVICAL CANCER SCREENING 10/18/2020 PAP SMEAR 10/18/2020 10/18/2017 BREAST CANCER SCREENING 03/15/2025 03/15/20 24, 02/28/2024, 08/26/2020, Additional history exists INFLUENZA VACCINE (#1) 2025 07/22/2020 COLORECTAL SCREENING 12/22/2026 12/22/2016, 12/22/19 17 Colorectal Cancer Screening 12/22/2026 DTAP/TDAP/TD VACCINES (3 - T d or Tdap) 03/14/2027 03/14/2017, 07/12/2011 Procedures Procedure Name Priority Date/Time Associated Diagnosis Comments MAMMO 3D ED DIAGNOSTIC BILAT W OR WO CAD Routine 03/15/2024 9:50 AM CDT Abnormal mammogram from Last 3 Months or Most Recently Relevant to Health Maintenance Results * MAMMO 3D ED DIAGNOSTIC BILAT W OR WO CAD (03/15/2024 9:50 AM CDT) Anatomical Region Laterality Modality Breast Bilateral Mammography 03/15/2024 9:51 AM CDT Impressions 03/15/2024 9:58 AM CDT IMPRESSION: NO MAMMOGRAPHIC EVIDENCE OF MALIGNANCY. OVERALL BIRADS CATEGORY:1 - negative. ROUTINE SCREENING MAMMOGRAPHY IS RECOMMENDED IN 12 MONTHS. A normal letter will be sent to patient. Narrative 03/15/2024 9:58 AM CDT EXAM: MAMMO 3D ED DIAGNOSTIC BILAT W OR WO CAD STUDY DATE: 03/15/2024 9:50 AM CLINICAL INDICATION: 58 years old female presents for diagnostic evaluation of bilateral breast asymmetries seen on screening mammogram done at outside facility. COMPARISON: Prior mammograms, the most recent dated 02/28/2024 PROCEDURE: Spot compression MLO of the right breast, spot compression CC of the left breast and 90 degree lateral digital mammographic views of the bilateral breasts are obtained. Computer Aided Detection (CAD) was utilized. Tomosynthesis was done with all views. FINDINGS: Breast Density: Heterogeneously dense, which may lower the sensitivity of mammography. Right breast: The asymmetry in the right lower breast dissipates with spot compression. There are stable asymmetries in the right upper breast at mid depth. There are no spiculated masses, suspicious microcalcifications or areas of architectural distortion in the right breast. Left breast: The asymmetries in the left inner breast seen on the screening mammogram dissipate with spot compression and having the appearance similar to the prior studies dating back to 2020. There are no spiculated masses, suspicious microcalcifications or areas of architectural distortion in the left breast. us Mare Larson MD MAMMO ORDERABLES Final Re sult from Last 3 Months or Most Recently Relevant to Health Maintenance Insurance [facility]
[2025-06-24 12:20] LABS: Hematocrit 39.6 % (37.0-47.0); Hemoglobin 12.6 g/dL (12.0-15.0); Immature Granulocyte Percent A 0.2 % (0-0.5); Lymphocytes Absolute Auto 1.66 K/mm3 (0.9-3.2); Mean Corpuscular HGB Conc 31.8 g/dl (32-36); Mean Corpuscular Hemoglobin 29.7 pg (26-34); Mean Corpuscular Volume 93.4 fl (80-100); Nucleated Red Blood Cells Absolute Auto 0.000 K/mm3 (0.0-0.012); Nucleated Red Blood Cells Perc 0.0 % (0.0-0.2); Platelet Count Result 300 k/mm3 (150-375); Red Blood Count 4.24 M/mm3 (4.2-5.4); White Blood Count 6.0 K/mm3 (4.5-10.0)
[2025-06-24 12:38] LABS: Alanine Aminotransferase 25 U/L (6-35); Albumin Level 4.1 g/dL (3.5-5.1); Alkaline Phosphatase 151 U/L (38-126); Anion Gap 7 mmol/L (4-12); Aspartate Amino Transferase 46 U/L (14-36); Bilirubin,Total 0.5 mg/dL (0.2-1.3); Blood Urea Nitrogen 14 mg/dL (7-17); Calcium 9.3 mg/dL (8.4-10.2); Carbon Dioxide 27 mmol/L (22-30); Chloride 101 mmol/L (98-107); Cholesterol 169 mg/dL (0-200); Estimated Glomerular Filt Rate > 60; Glucose 94 mg/dL (65-110); HDL Direct 89 mg/dL; Potassium 4.2 mmol/L (3.4-5.0); Sodium 135 mmol/L (137-145); Total Protein 7.1 g/dL (6.3-8.2); Triglycerides 43 mg/dL (<150)
[2025-06-24 14:19] LABS: Thyroid Stimulating Hormone 0.019 uIU/mL (0.465-4.680)
[2025-06-24 14:55] LABS: Vitamin B12 > 1000.0 pg/mL (239-931)
[2025-06-24 16:49] LABS: Add Urine Microscopic? NO; Appearance Urine Clear (Clear); Glucose Urine UA Negative (Negative); Leukocyte Esterase Ur Negative LEU/UL (Negative); Nitrate Urine Negative (Negative); Specific Grav Ur 1.005 (1.001-1.035)
== END 2025-06-24 12:03 | disposition home or self-care (01) ==
LOC: ANHLAB 12:03
PROVIDERS: PCP Obstetrics & Gynecology Gynecology; Visit Provider Emergency Medicine
DX: Z00.00 Encounter for general adult medical examination without abnormal findings (principal); F41.1 Generalized anxiety disorder; M81.0 Age-related osteoporosis without current pathological fracture; R00.2 Palpitations; R07.89 Other chest pain; R41.840 Attention and concentration deficit
CPT/HCPCS: 36415; 80061; 80069; 80076; 81003; 82306; 82607; 82746; 84443; 85025

== ENCOUNTER 2025-10-15 13:41 | Outpatient (CLI) | payer BC, SELFPAY ==
--- NOTE | ~2025-10-15 | XR_ITS ---
EXAMINATION: XR ribs LT 2V, 10/15/2025 14:05 ORTHOTIST HISTORY: BACK AND RIB PAIN, MUSCLE LIKE SPASMS X 1 WEEK COMPARISON: No comparisons available. Findings: There are remote appearing Nondisplaced fractures of the lateral seventh and eighth ribs. No significant degenerative changes. There are nodules noted in the lungs the largest in the mid lobe measuring 1.1 x 1 cm, no pneumothorax is identified. Impression: No acute fracture identified. Remote appearing fractures detailed above. Lung nodules concerning for neoplasm. CT chest with contrast recommended Reviewed, dictated and finalized at location P. OTIST Impression: No acute fracture identified. Remote appearing fractures detailed above. Lung n odules concerning for neoplasm. CT chest with contrast recommended
--- NOTE | ~2025-10-15 | XR_ITS ---
XR thoracic spine 2V Indication: BACK AND RIB PAIN Comparison: None Findings: Mild levoconvex scoliosis, no fracture or subluxation. Moderate loss of disc height throughout. Soft tissues unremarkable Impression: No acute abnormality. Reviewed, dictated and finalized at location P. LIFE MANAGER Impression: No acute abnormality.
--- OUTSIDE RECORDS SUMMARY | 2025-10-15 14:46 | XMS_ITS | Clinical Summary ---
Author Organization [facility] [employer] Address [address] [place] [address] Care Team Providers Care Principal Librarian Name Role Phone Maroi Small MD Primary Care Provider [phone] Source Comments [facility] [employer],non-owned Affiliates and Associated Physician Practices is amultiple site organization consisting of ambulatory clinics and hospital sitesin [place], [place], [place] and [place]. This disclosure is being madepursuant to the Care Everywhere program and may not contain all information available regarding this patient. Last updated 18.[facility] [employer] Allergies No known active allergies Immunizations Immunization [...] of 3 - 19+ 3-dose series) 1985 Cervical Cancer Screening 1987 PAP SMEAR 1987 PAP with HPV 1996 PNEUMOCOCCAL VACCINE 50+ (1 of 1 - PCV) 2016 ZOSTER VACCINE (1 of 2) 2016 DEPRESSION SCREENING 11/14/2024 COVID-19 VACCINE (1 - 2024-2 6 season) 2025 INFLUENZA VACCINE (#1) 2025 DTAP/TDAP/TD VACCINES (2 [...] patient's age to complete this topic Insurance [facility] SELF PAY NO INSURANCE Member Subscriber Plan / Payer (Ef fective for All Dates) Name:Deborah Garcia Member ID:Not on file Relation to Subscriber:Not on file Name:DEBORAH GARCIA Subscriber ID:Not on file (Home) Address: [address] [place] [address] Payer ID:Not on file Group ID:Not on file Type:Self Pay Address: [place], [place] [facility] SELF PAY NO INSURANCE Member Subscriber Plan / Payer (Ef fective for All Dates) Name:Deborah Garcia Member ID:Not on file Relation to Subscriber:Not on file Name:DEBORAH GARCIA Subscriber ID:Not on file (Home) Address: [address] [place] [place] [address] Payer ID:Not on file Group ID:Not on file Type:Self Pay Address: [place], [place] [facility] SELF PAY NO INSURANCE Member Subscriber Plan / Payer (Ef fective for All Dates) Name:Deborah Garcia Member ID:Not on file Relation to Subscriber:Not on file Name:DEBORAH GARCIA Subscriber ID:Not on file (Home) Address: [address] [place] [address] Payer ID:Not on file Group ID:Not on file Type:Self Pay Address: [place], [place] [facility] SELF PAY NO INSURANCE Member Subscriber Plan / Payer (Ef fective for All Dates) Name:Deborah Garcia Member ID:Not on file Relation to Subscriber:Not on file Name:DEBORAH GARCIA Subscriber ID:Not on file (Home) Address: [address] [place] [address] Payer ID:Not on file Group ID:Not on file Type:Self Pay Address: [place], [place] [facility] SELF PAY NO INSURANCE Member Subscriber Plan / Payer (Ef fective for All Dates) Name:Deborah Garcia Member ID:Not on file Relation to Subscriber:Not on file Name:GARCIADEBORAH Subscriber ID:Not on file (Home) Address: [address] [facility] [place] [address] Payer ID:Not on file Group ID:Not on file Type:Self Pay Address: [place], [place] [facility] SELF PAY NO INSURANCE Member Subscriber Plan / Payer (Ef fective for All Dates) Name:GarciaThaoa Member ID:Not on file Relation to Subscriber:Not on file Name:DEBORAH GARCIA Subscriber ID:Not on file (Home) Address: [address] [place] [address] [place] [address] Payer ID:Not on file Group ID:Not on file Type:Self Pay Address: [place], [place] Care Teams Principal Librarian Relationship Specialty Start Date End Date Mario Small MD [address] [place] [address] PCP - General Internal Medicine 03/14/17
--- OUTSIDE RECORDS SUMMARY | 2025-10-15 14:46 | XMS_ITS | Clinical Summary ---
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
--- OUTSIDE RECORDS SUMMARY | 2025-10-15 14:46 | XMS_ITS | Clinical Summary ---
Author Organization [facility] Address [address] [place] [place] [address] Care Team Providers Care Acid Supervisor Name Role Phone Mario Small MD Primary Care Provider [phone] Allergies Active Allergy Reactions Criticality Noted Date [...] 12/18/2024 Assessment & Plan (12/18/2024 2:38 PM SCALE OPERATOR): Continues to follow response. WIll monitor response. NO side effects noted. Check iron levels. Polyarthralgia 12/18/2024 Assessment & Plan (12/18/2024 2:38 PM SCALE OPERATOR): Continue to follow response. NO change at the present time. S/P cholecystectomy 12/18/2024 Assessment & Plan (12/18/2024 2:39 PM SCALE OPERATOR): No dumping. Stable at the present itme. [...] tracings do show PVCs correlating with symptoms. Verden unclear. Recommend ambulatory monitoring to clarify mechanism and burden. Will also arrange for imaging to r/o structural heart disease. Management options depend on burden and may include observation, medical therapy or catheter ablation. --30d event monitor --Transthoracic echocardiogram --F/u 6 weeks to reassess Polyarthropathy 01/29/2018 Synovitis 03/30/2014 Overview (02/16/2017): SYNOVITIS NOS Encounters Date Type Department Care Team Description 09/25/2025 Telephone [facility] [address] [place] [address] Mario Small MD 09/23/2025 1:23 PM SCALE OPERATOR - 09/23/2025 11:59 PM SCALE OPERATOR Hospital Encounter [facility] [address] [place] [address] Arthralgia, unspecified joint Discharge Disposition: Discharge to home or self care 09/23/2025 1:20 PM SCALE OPERATOR Lab [facility] [address] [place] [address] from Last 3 Months Immunizations Immunization Administration [...] Father Cirilo Short Memory loss Father's Brother Georgia Short Clotting disorder Maternal Grandfather Everardo Veleze Arthritis Mother Maribell Torres Breast cancer Mother [...] Father's Brother Merhoang Short Maternal Grandfather Everardo Gar Mother Maribell Torres Mother's Sister 1 Alive [...] on file Legal Sex Female 11:31 PM SCALE OPERATOR Gender Identity Not on file Sexual Orientation Not on file Obstetrics History Para Term AB IAB SAB Ectopic Multiple Livin g Live Births 2 2 2 Date Outcome GA Total Labor Labor/2nd/3rd Weight Sex Type Anes PTL Nettie A1 A5 Name Clin Term Term Last Filed Vital Signs Vital Sign Reading Time Taken Comments Blood Pressure 124/74 12/18/2024 2:05 PM SCALE OPERATOR Pulse 78 12/18/2024 2:05 PM SCALE OPERATOR Temperature 36.8 C (98.2 F) 12/18/2024 2:05 PM SCALE OPERATOR Respiratory Rate 16 06/01/2022 3:11 PM CDT Oxygen Saturation 98% 12/18/2024 2:05 PM SCALE OPERATOR Inhaled Oxygen Concentration - - Weight 54 kg (119 lb 1.6 oz) 12/18/2024 2:05 PM SCALE OPERATOR Height 147.3 cm (4' 10) 12/18/2024 2:05 PM SCALE OPERATOR Body Mass Index 24.89 12/18/2024 2:05 PM SCALE OPERATOR Plan of Treatment Health Maintenance Due Date Last Done Comments Cervical Cancer Screening 1965 Hepatitis C Screening 1965 Zoster Vaccine (1 of 2) 2016 Regular Well Visit/Exam 18-64 10/23/2020 10/23/2019 Influenza Vaccine (#1) 2025 , 09/15/2021, 07/22/2020, Additional history exists Depression Screening 12/18/2025 12/18/2024, 09/11/2024, 01/03/2024, Additional history exists Breast Cancer Screening-Mammogram 02/27/2026 02/27/2025, 03/15/2024, 03/15/2024, Additional history exists Colon Cancer Screening-Colonoscopy 12/22/2026 [...] Procedure Name Priority Date/Time Associated Diagnosis Comments XR HAND BILATERAL 3 OR MORE VIEWS OF EACH Schedule Routine, Read Routine (OP Routine) 09/23/2025 1:47 PM SCALE OPERATOR Arthralgia, unspecified joint EGFR Routine 09/23/2025 1:25 PM SCALE OPERATOR BLOOD MISC TO [place] Routine 09/23/2025 1: 25 PM SCALE OPERATOR BLOOD MISC TO [place] Routine 09/23/2025 1: 25 PM SCALE OPERATOR DIFFERENTIAL AUTO Routine 09/23/2025 1:2 5 PM SCALE OPERATOR SJOGRENS SYNDROME-B ANTIBODY Routine 09/23/2025 1:25 PM SCALE OPERATOR SJOGRENS SYNDROME-A ANTIBODY Routine 09/23/2025 1:25 PM SCALE OPERATOR CASAREZ ANTIBODIES Routine 09/23/2025 1:25 PM SCALE OPERATOR ERYTHROCYTE SEDIMENTATION RATE Routine 09/23/2025 1:25 PM SCALE OPERATOR SCL 70 ANTIBODIES Routine 09/23/2025 1:2 5 PM SCALE OPERATOR PELT SALTER ANTIBODIES Routine 09/23/2025 1:25 PM SCALE OPERATOR RHEUMATOID FACTOR Routine 09/23/2025 1:2 5 PM SCALE OPERATOR LUPUS ANTICOAGULANT PANEL PLUS REFLEXES Routine 09/23/2025 1:25 PM SCALE OPERATOR G6PD QUALITATIVE WITH REFLEX TO QUANTITATIVE Routine 09/23/2025 1:25 PM SCALE OPERATOR ANTI-DOUBLE STRANDED DNA ANTIBODIES Routine 09/23/2025 1:25 PM SCALE OPERATOR CREATINE KINASE (CK), TOTAL Routine 09/23/2025 1:25 PM SCALE OPERATOR COMPREHENSIVE METABOLIC PANEL Routine 09/23/2025 1:25 PM SCALE OPERATOR C4 COMPLEMENT Routine 09/23/2025 1:25 PM SCALE OPERATOR C3 COMPLEMENT Routine 09/23/2025 1:25 PM SCALE OPERATOR CBC WITH AUTO DIFFERENTIAL Routine 09/23/2025 1:25 PM SCALE OPERATOR CARDIOLIPIN ANTIBODY, IGG AND IGM Routine 09/23/2025 1:25 PM SCALE OPERATOR CRP (ACUTE PHASE) Routine 09/23/2025 1:2 5 PM SCALE OPERATOR BETA 2 GLYCOPROTEIN ANTIBODY, IGG, IGM Routine 09/23/2025 1:25 PM SCALE OPERATOR CYCLIC CITRUL PEPTIDE ANTIBODY, IGG Routine 09/23/2025 1:25 PM SCALE OPERATOR ISABEL QUALITATIVE WITH REFLEX TO ISABEL QUANTITATIVE Routine 09/23/2025 1:25 PM SCALE OPERATOR SCREENING MAMMOGRAM BILATERAL W CHOCO Schedule Routine, Read Routine (OP Routine) 02/27/2025 12:35 PM CDT COLONOSCOPY IMAGES 12/22/2016 from Last 3 Months or Most Recently Relevant to Health Maintenance Results * XR Hand Bilateral 3 or More Views of Each (09/23/2025 1:47 PM SCALE OPERATOR) Anatomical Region Laterality Modality Upper Extremities, Hand Digital Radiography 09/23/2025 2:01 PM SCALE OPERATOR Impressions 09/23/2025 2:01 PM SCALE OPERATOR 1. There is mild periarticular osteopenia both hands without acute fracture or dislocation or significant degenerative changes. 2. Mild soft tissue swelling bilateral 2nd digits. Electronically signed by: Ivis Maurice M.D. Narrative 09/23/2025 2:01 PM SCALE OPERATOR BILATERAL HANDS 3 OR MORE VIEWS, DATE: 09/23/2025 5:45 PM INDICATION: Arthralgia. M 25.50 COMPARISON: None TECHNIQUE: AP lateral and oblique views of both hands FINDINGS: Left hand: Osteopenia most significant in a periarticular distribution. There are no acute fracture or dislocation or significant degenerative changes. Mild soft tissue swelling 2nd digit. Right hand: There is mild periarticular osteopenia without acute fractures or dislocations or significant degenerative changes. Mild soft tissue swelling 2nd digit. Procedure Note Ivis Maurice MD - 09/23/2025 BILATERAL HANDS 3 OR MORE VIEWS, DATE: 09/23/2025 5:45 PM INDICATION: Arthralgia. M 25.50 COMPARISON: None TECHNIQUE: AP lateral and oblique views of both hands FINDINGS: Left hand: Osteopenia most significant in a periarticular distribution. There are no acute fracture or dislocation or significant degenerative changes. Mild soft tissue swelling 2nd digit. Right hand: There is mild periarticular osteopenia without acute fractures or dislocations or significant degenerative changes. Mild soft tissue swelling 2nd digit. IMPRESSION: 1. There is mild periarticular osteopenia both hands without acute fracture or dislocation or significant degenerative changes. 2. Mild soft tissue swelling bilateral 2nd digits. Electronically signed by: Ivis Maurice M.D. Aniyah Anderson MD IMG XR PROCEDURES Final Result * Lupus Anticoagulant Panel plus Reflexes (09/23/2025 1:25 PM SCALE OPERATOR) PT 10.5 10.2 - 13.5 sec Comment:Testing performed by : [facility], [address] [facility] [place]., [address] INR 0.93 0.90 - 1.20 [facility] Comment: Interpretive data Oral anticoagulant therapeutic ranges: Venous thromboembolism prophylaxis or treatment: 2.0-3.0 CARDIOLOGY Standard range: 2.0-3.0 High-intensity range: 2.5-3.5 Refer to indication-specific guidelines for appropriate target ranges for prosthetic heart valve replacement. Current interpretive data was last revised on 2019. Testing performed by: [facility], [address] [place]., [address] aPTT 32 26 - 38 sec [facility] Comment: Interpretive Data Heparin therapeutic range: 66.0 - 100.0 seconds. Range based on correlation with therapeutic heparin activity range of 0.3 - 0.7 Units/mL. Testing performed by: [facility], [address] [place]., [address] DRVVT screen ratio 0.97 0.00 - 1.20 Ratio [facility] Comment:Testing performed by : [facility], [address] [place]., [address] SCT Screen Ratio 0.99 0.00 - 1.16 Ratio [facility] Comment:Testing performed by : [facility], [address] [place]., [address] Lupus anticoagulant, interp Negative [facility] Comment: Interpretive data Lupus anticoagulants (LA) are acquired autoantibodies that interfere with invitro clotting in a phospholipid-dependent manner and are associated with an increased risk of thromboembolic events and complications. Routine APTT and PT reagents are not sensitive to inhibition by LA, and should not be used as screening tests. The laboratory follows ISTH 2009 guidelines (Pengo, 2009) for LA testing and interpretation: Two sensitive methods performed in parallel improve sensitivity. One activates the intrinsic pathway (Silica-APTT) and one activates the common pathway (dilute Alexander's viper venom time - dRVVT). Each method begins with a SCREEN step, and if neither is prolonged, no further testing is performed and the interpretation is: NO LA DETECTED. If either screening test is prolonged, then additional steps are performed to provide specificity. A POSITIVE LA result occurs if either one or both tests produce a positive CONFIRM result. An INDETERMINATE result means results cannot distinguish between coagulopathy and a weak LA. Consider retesting when PT/INR is less prolonged, if clinical indicated. To support laboratory confirmation of antiphospholipid syndrome, persistence of a positive LA result should be verified by repeat testing at least 12 weeks later (Meng, 2006). Prior to LA testing, the laboratory screens patient plasma samples for evidence of heparin contamination, which is neutralized prior to LA testing, and the following interfering conditions which require canceling LA testing: INR >3.0, fibrinogen < 100 mg/dl, use of direct oral or IV anticoagulants other than heparin. References: 1) Elizabeth V, Eirck A, Cornelia JH, Orji TL, Nitin M, De Maricruz PG. Update of the guidelines for lupus anticoagulant detection. J Thromb Haemost. 2009; 7:2730-5655. 2. Meng Baxter et al. International consensus statement on an update of the classification criteria for definite antiphospholipid syndrome (APS). J Thromb Haemost. 2006; 4:295-306. Current interpretive data was last revised on 2018 Testing performed by: [facility], [address] [place] [address], [place]., [address] Blood 09/23/2025 1:25 PM SCALE OPERATOR 09/23/2025 7:01 PM SCALE OPERATOR us Aniyah Anderson MD LAB BLOOD ORDERABLES Final Resul t [facility] [address] Department [place] [address] * G6PD qualitative with reflex to quantitative (09/23/2025 1:25 PM SCALE OPERATOR) G6PD Normal Normal Comment: Interp data: G6PD activity should be interpreted in the context of a patient's hematocrit. Hematocrit < 20% may lead to a falsely deficient result, while hematocrit > 50% may lead to a falsely normal result. Current interpretive data was last revised on 2020. Testing performed by: [facility], [address] [place] [address]., [address] Blood 09/23/2025 1:25 PM SCALE OPERATOR 09/23/2025 7:55 PM SCALE OPERATOR us Aniyah Anderson MD LAB BLOOD ORDERABLES Final Resul t [facility] [address] Department [place] [address] * (ABNORMAL) ISABEL ab ql w/rflx to ISABEL qn (09/23/2025 1:25 PM SCALE OPERATOR) ISABEL Positive( A) Comment: Interpretive Data Normal range for ISABEL Qualitative Antibody = Negative. 1. ISABEL is performed using indirect immunofluorescence against HEp-2 cells 2. ISABEL titers are performed on all positive qualitative results. 3. A significantly positive ISABEL result is defined as a positive nuclear fluorescence at a titer of 1:80 or greater. 4. 15% of normal people above age 65 have significantly positive ISABEL results. 5% or less of normal people age 65 or under have significantly positive ISABEL results. Current interpretive data was last revised on 2020. Testing performed by: [facility], [address] [place] [address]., [address] ISABEL, quant 1:320 titer [facility] Comment:Testing performed by : [facility], [address] [facility], [place]., [address] ISABEL, interp Homogeneo us(A) [facility] Comment:Testing performed by : [facility], [address] [place]., [address] Blood 09/23/2025 1:25 PM SCALE OPERATOR 09/23/2025 7:59 PM SCALE OPERATOR us Aniyah Anderson MD LAB BLOOD ORDERABLES Final Resul t [facility] [address] Department [place] [address] * Beta 2 glycoprotein antibody, IgG, IgM (09/23/2025 1:25 PM SCALE OPERATOR) Beta-2 glycoprotein I, IgG <1.4 <=19.9 units/mL Comment: Interpretive Data Negative: <20 U/mL Positive: > or = 20 U/mL Beta-2 glycoprotein 1 (Beta-2 GP1) antibodies are a more specific marker of thrombotic risk. It is expected that some samples will be ACL positive and Beta- 2 [id number]. In order to improve specificity, the International Congress on Antiphospholipid Antibodies recommends Beta-2 GP1 antibodies of IgG or IgM isotype (> the 99th percentile), obtained twice, at least 12 weeks apart, to support a diagnosis of antiphospholipid syndrome. The cutoff for this assay was developed from data based on the 99th percentile. These results were obtained with the [employer] BioPlex 2200 System. Beta 2GP1 IgG values obtained with different manufacturers' assay methods may not be used interchangeably. Current interpretive data was last revised on 2017. Testing performed by: [facility], [address] [place] [address]., [address] Beta-2 glycoprotein I, IgM <1.5 <=19.9 units/mL [facility] Comment: Interpretive Data Negative: <20 U/mL Positive: > or = 20 U/mL Beta- 2 glycoprotein 1 (Beta-2 GP1) antibodies are a more specific marker of thrombotic risk. It is expected that some samples will be ACL positive and Beta- 2 GP1 negative. In order to improve specificity, the International Congress on Antiphospholipid Antibodies recommends Beta-2 GP1 antibodies of IgG or IgM isotype (> the 99th percentile), obtained twice, at least 12 weeks apart, to support a diagnosis of antiphospholipid syndrome. The cutoff for this assay was developed from data based on the 99th percentile. The Beta-2 GP1 IgM test can produce false positive results due to cross-reactivity with Rheumatoid factor. These results were obtained with the [employer] BioPlex 2200 System. Beta-2 GP1 IgM values obtained with different manufacturers' assay methods may not be used interchangeably. Current interpretive data was last revised on 2017. Testing performed by: [facility], [address] [place] [address]., [address] Blood 09/23/2025 1:25 PM SCALE OPERATOR 09/23/2025 9:48 PM SCALE OPERATOR us Aniyah Anderson MD LAB BLOOD ORDERABLES Final Resul t Performing Organization Address [facility] de Phone Number [facility] [address] [place] [address] * BLOOD MISC TO [place] (09/23/2025 1:25 PM SCALE OPERATOR) Test name, chem AB2GP Beta-2 Glycoprotein 1 Antibodies, IgA, Serum [place] ref Lab Misc See Footnote [facility] Comment: Test Result Flag Unit RefValue Beta 2 GP1 Ab IgA, S <9.4 LAURY -- REFERENCE VALUE -- <15.0 (Negative) Test Performed by: [place] [address] Utility Helicopter Repairer: Lisset Coleman Ph.D.; CLIA# [id number] Blood 09/23/2025 1:25 PM SCALE OPERATOR 09/23/2025 8:05 PM SCALE OPERATOR Narrative [facility] - 09/27/2025 8:56 PM SCALE OPERATOR AB2GP Beta-2 Glycoprotein 1 Antibodies, IgA, Serum us Aniyah Anderson MD LAB BLOOD ORDERABLES Final Resul t Performing Organization Address [facility] de Phone Number [facility] [address] Department [place] [address] [place] ref [facility] * BLOOD MISC TO [place] (09/23/2025 1:25 PM SCALE OPERATOR) Test name, chem ACLIP Phospholipid (Cardiolipin) Antibodies, IgA, [place] ref Lab Misc See Footnote [facility] Comment: Test Result Flag Unit RefValue Phospholipid Ab IgA, S <9.4 APL -- REFERENCE VALUE -- <15.0 (Negative) Test Performed by: [facility] [address] [place] [address] Utility Helicopter Repairer: Lisset Coleman Ph.D.; CLIA# [id number] Blood 09/23/2025 1:25 PM SCALE OPERATOR 09/23/2025 5:48 PM SCALE OPERATOR Narrative [facility] - 09/25/2025 11:47 AM SCALE OPERATOR ACLIP Aniyah Anderson MD LAB BLOOD ORDERABLES Final Resul t Performing Organization Address [facility] Co de Phone Number [facility] [address] [place] [place] [place] [address] [facility] * Anti-double stranded DNA abs (09/23/2025 1:25 PM SCALE OPERATOR) dsDNA Ab <1.0 <=4.0 IUnits/mL Comment: Interpretive Data Negative: < or = 4 IUnits/mL Indeterminate: 5 - 9 IUnits/mL Positive: > or = 10 IUnits/mL Current interpretive data was last revised on 2017. Testing performed by: [facility], [address] [facility], [place]., [address] Blood 09/23/2025 1:25 PM SCALE OPERATOR 09/23/2025 9:48 PM SCALE OPERATOR us Aniyah Anderson MD LAB BLOOD ORDERABLES Final Resul t Performing Organization Address City/[facility]/ZIP Co de Phone Number [facility] [address] [facility] [place] [address] * SCL 70 abs (09/23/2025 1:25 PM SCALE OPERATOR) Anti-Scl70, IgG <0.2 <=0.9 Ab Index Comment: Interpretive Data Negative: < 1.0 Ab Index Positive: > or = 1.0 Ab Index Current interpretive data was last revised on 2017. Testing performed by: [facility], [address] [place]., [address] Blood 09/23/2025 1:25 PM SCALE OPERATOR 09/23/2025 9:48 PM SCALE OPERATOR us Aniyah Anderson MD LAB BLOOD ORDERABLES Final Resul t [facility] [address] [employer] [place], [place] [id number] * eGFR (09/23/2025 1:25 PM SCALE OPERATOR) eGFR >90 >=60 mL/min/1. 73 m2 Comment: Interpretive Data Reference Interval Normal >/= 90 mL/min/1.73m2 Mildly decreased* 60 - 89 mL/min/1.73m2 Mildly to moderately decreased 45 - 59 mL/min/1.73m2 Moderately to severely decreased 30 - 44 mL/min/1.73m2 Severely decreased 15 - 29 mL/min/1.73m2 Kidney Failure < 15 mL/min/1.73m2 *Relative to young adult level Estimated glomerular filtration rate is determined by the 2020 CKD-EPI equation recommended by the National Kidney Foundation (A Unifying Approach to GFR Estimation: Recommendations of the NKF-ASK Task Force on Reassessing the Inclusion of Race in Diagnosing Kidney Disease, JASN 2020). The CKD-EPI equation should not be used for patients with unstable renal function and has not been validated in children and those over 70. Current interpretive data was last reviewed 2021. Blood 09/23/2025 1:25 PM SCALE OPERATOR 09/23/2025 8:38 PM SCALE OPERATOR us Aniyah Anderson MD LAB BLOOD ORDERABLES Final Resul t [facility] [address] Department [place] [address] * Differential, auto (09/23/2025 1:25 PM SCALE OPERATOR) Neutrophil abs 3.40 1.50 - 6.50 K/cumm Imm gran abs 0.01 0.00 - 0.10 K/cumm [facility] Lymphocyte abs 1.67 0.80 - 3.30 K/cumm [facility] Monocyte abs 0.41 0.20 - 0.80 K/cumm [facility] Eosinophil abs 0.09 0.00 - 0.50 K/cumm [facility] Basophil abs 0.04 0.00 - 0.10 K/cumm [facility] Neutrophil pct 60.5 % [facility] Comment: Interpretive Data Percent cell count reference ranges are not reported, since discordance with absolute values may lead to misinterpretation of CBC data. Current Interpretive Data was last revised on 2018. Imm gran pct 0.2 % [facility] Comment: Interpretive Data Percent cell count reference ranges are not reported, since discordance with absolute values may lead to misinterpretation of CBC data. Current Interpretive Data was last revised on 2018. Lymphocyte pct 29.7 % [facility] Comment: Interpretive Data Percent cell count reference ranges are not reported, since discordance with absolute values may lead to misinterpretation of CBC data. Current Interpretive Data was last revised on 2018. Monocyte pct 7.3 % [facility] Comment: Interpretive Data Percent cell count reference ranges are not reported, since discordance with absolute values may lead to misinterpretation of CBC data. Current Interpretive Data was last revised on 2018. Eosinophil pct 1.6 % [facility] Comment: Interpretive Data Percent cell count reference ranges are not reported, since discordance with absolute values may lead to misinterpretation of CBC data. Current Interpretive Data was last revised on 2018. Basophil pct 0.7 % [facility] Comment: Interpretive Data Percent cell count reference ranges are not reported, since discordance with absolute values may lead to misinterpretation of CBC data. Current Interpretive Data was last revised on 2018. Blood 09/23/2025 1:25 PM SCALE OPERATOR 09/23/2025 7:49 PM SCALE OPERATOR us Aniyah Anderson MD LAB BLOOD ORDERABLES Final Resul t Performing Organization Address City/[facility] Co de Phone Number [facility] [address] Department [place] [address] * Casarez abs (09/23/2025 1:25 PM SCALE OPERATOR) Anti-HASEEB, SM <0.2 <=0.9 Ab Index Comment: Interpretive Data Negative: < 1.0 Ab Index Positive: > or = 1.0 Ab Index Current interpretive data was last revised on 2017. Testing performed by: [facility], [address] [place] [address]., [address] Blood 09/23/2025 1:25 PM SCALE OPERATOR 09/23/2025 9:48 PM SCALE OPERATOR us Aniyah Anderson MD LAB BLOOD ORDERABLES Final Resul t Performing Organization Address [facility] Co de Phone Number [facility] [address] Department [place] [address] * PELT SALTER abs (09/23/2025 1:25 PM SCALE OPERATOR) Pathologist [facility] PELT SALTER ab <0.2 <=0.9 Ab Index Comment: Interpretive Data Negative: < 1.0 Ab Index Positive: > or = 1.0 Ab Index Current interpretive data was last revised on 2017. Testing performed by: [facility], [address] [place] [address]., [address] Blood 09/23/2025 1:25 PM SCALE OPERATOR 09/23/2025 9:48 PM SCALE OPERATOR us Aniyah Anderson MD LAB BLOOD ORDERABLES Final Resul t Performing Organization Address [facility] Co de Phone Number [facility] [address] Department of [employer] [place], [place] [id number] * C4 complement (09/23/2025 1:25 PM SCALE OPERATOR) [facility] Complement C4 28 10 - 40 mg/dL Blood 09/23/2025 1:25 PM SCALE OPERATOR 09/23/2025 10:18 PM SCALE OPERATOR us Aniyah Anderson MD LAB BLOOD ORDERABLES Final Resul t Performing Organization Address [facility] Co de Phone Number [facility] [address] Department [place] [place] [address] * (ABNORMAL) CBC with auto differential (09/23/2025 1:25 PM SCALE OPERATOR) [facility] WBC 5.62 3.80 - 9.90 K/cumm Hgb 11.9 11.9 - 15.5 g/dL [facility] Hct 37.9 35.6 - 45.5 % [facility] Plt 268 150 - 400 K/cumm [facility] MPV 10.8 9.1 - 12.3 fL [facility] RBC 4.04 3.90 - 5.20 M/cumm [facility] MCV 93.8 81.3 - 96.4 fL [facility] MCH 29.5 27.1 - 33.3 pg [facility] MCHC 31.4(L) 32.3 - 35.7 g/dL [facility] RDW CV 14.4 11.1 - 14.9 % [facility] RDW SD 49.1(H) 35.7 - 48.1 fL [facility] NRBC abs 0.00 0.00 - 0.01 K/cumm [facility] Blood 09/23/2025 1:25 PM SCALE OPERATOR 09/23/2025 7:49 PM SCALE OPERATOR us Aniyah Anderson MD LAB BLOOD ORDERABLES Final Resul t Performing Organization Address City/[facility]/ZIP Co de Phone Number [facility] [address] Department [employer] [place] [address] * Cyclic citrul peptide antibody, IgG (09/23/2025 1:25 PM SCALE OPERATOR) [facility] CCP Ab <0.5 <=2.9 units/mL Comment: Interpretive data Negative: <3 units/mL Positive: > or equal to 3 units/mL Current interpretive data was last revised on 2017. Testing performed by: [facility], [address] [place] [address]., [id number] Blood 09/23/2025 1:25 PM SCALE OPERATOR 09/23/2025 9:48 PM SCALE OPERATOR us Aniyah Anderson MD LAB BLOOD ORDERABLES Final Resul t [facility] [address] Department [place] [address] * Cardiolipin antibody, IgG and IgM (09/23/2025 1:25 PM SCALE OPERATOR) Pathologist [facility] Cardiolipin, IgG <1.6 <=19.9 GPL U/mL Comment: Interpretive Data Negative: <20 GPL U/mL Positive: > or = 20 GPL U/mL Anticardiolipin antibodies are associated with certain clinical events including unexplained arterial and venous thromboemboli, and unexplained morbidity. However, detection of low levels of anticardiolipin antibodies occurs in both healthy individuals and patients with co-morbidities not associated with the antiphospholipid antibody (APA) syndrome including inflammatory and infectious conditions. In order to improve specificity, the International Congress on Antiphospholipid Antibodies recommends ACL antibodies of IgG or IgM isotype present in medium or high titer (e.g. > 40 GPL, or >the 99th percentile), on two or more occasions, at least 12 weeks apart, to support a diagnosis of antiphospholipid syndrome. The cutoff for this assay was developed from data based on the 99th percentile. In addition, the International Congress on Antiphospholipid Antibodies does not recommend testing for IgA BOZENA. These results were obtained with the Zurrba 2200 System. Cardiolipin IgG values obtained with different manufacturers' assay methods may not be used interchangeably. Current interpretive data was last revised on 2017. Testing performed by: [facility], [address] [place] [address]., [id number] Cardiolipin, IgM <1.5 <=19.9 MPL U/mL [facility] Comment: Interpretive Data Negative: <20 MPL U/mL Positive: > or = 20 MPL U/mL Anticardiolipin antibodies are associated with certain clinical events including unexplained arterial and venous thromboemboli, and unexplained morbidity. However, detection of low levels of anticardiolipin antibodies occurs in both healthy individuals and patients with co-morbidities not associated with the antiphospholipid antibody (APA) syndrome including inflammatory and infectious conditions. In order to improve specificity, the International Congress on Antiphospholipid Antibodies recommends ACL antibodies of IgG or IgM isotype present in medium or high titer (e.g. > 40 MPL, or >the 99th percentile), on two or more occasions, at least 12 weeks apart, to support a diagnosis of antiphospholipid syndrome. The cutoff for this assay was developed from data based on the 99th percentile. In addition, the International Congress on Antiphospholipid Antibodies does not recommend testing for IgA BOZENA. The ACL IgM test can produce false positive results due to cross-reactivity with Rheumatoid factor, dsDNA or certain infectious disease antibodies. These results were obtained with the Zurrba 2200 System. Cardiolipin IgM values obtained with different manufacturers' assay methods may not be used interchangeably. Current interpretive data was last revised on 2017. Testing performed by: [facility], [address] [place] [address]., [id number] Blood 09/23/2025 1:25 PM SCALE OPERATOR 09/23/2025 9:48 PM SCALE OPERATOR us Aniyah Anderson MD LAB BLOOD ORDERABLES Final Resul t [facility] [address] Department [place] [address] * Sjogren's syndrome B ab (09/23/2025 1:25 PM SCALE OPERATOR) Anti-HASEEB, SS-B <0.2 <=0.9 Ab Index Comment: Interpretive Data Negative: < 1.0 Ab Index Positive: > or = 1.0 Ab Index Current interpretive data was last revised on 2017. Testing performed by: [facility] [address] [place]., [address] Blood 09/23/2025 1:25 PM SCALE OPERATOR 09/23/2025 9:48 PM SCALE OPERATOR Result Amira Anderson MD LAB BLOOD ORDERABLES Final Resul t Performing Organization Address [facility] Co de Phone Number [facility] [address] [facility] [place] [address] * Sjogren's syndrome A ab (09/23/2025 1:25 PM SCALE OPERATOR) Anti-HASEEB, SS-A <0.2 <=0.9 Ab Index Comment: Interpretive Data Negative: < 1.0 Ab Index Positive: > or = 1.0 Ab Index Current interpretive data was last revised on 2017. Testing performed by: [facility], [address] [place]., [address] Blood 09/23/2025 1:25 PM SCALE OPERATOR 09/23/2025 9:48 PM SCALE OPERATOR Result Amira Anderson MD LAB BLOOD ORDERABLES Final Resul t Performing Organization Address [facility] Co de Phone Number [facility] [address] Department [place] [address] * Erythrocyte sedimentation rate (09/23/2025 1:25 PM SCALE OPERATOR) Pathologist [facility] Erythrocyte sedimentation rate 11 1 - 30 mm/hr Blood 09/23/2025 1:25 PM SCALE OPERATOR 09/23/2025 7:49 PM SCALE OPERATOR Result Amira Anderson MD LAB BLOOD ORDERABLES Final Resul t Performing Organization Address [facility] Co de Phone Number [facility] [address] Department [employer] [place], [place] [id number] * Rheumatoid factor (09/23/2025 1:25 PM SCALE OPERATOR) Pathologist [facility] Rheumatoid factor, quant <10 <=15 IUnits/mL Blood 09/23/2025 1:25 PM SCALE OPERATOR 09/23/2025 8:38 PM SCALE OPERATOR Result Amira Anderson MD LAB BLOOD ORDERABLES Final Resul t Performing Organization Address [facility] Phone Number [facility] [address] [facility] [employer] [place], [place] [id number] * C3 complement (09/23/2025 1:25 PM SCALE OPERATOR) [facility] Complement C3 118 90 - 180 mg/dL Blood 09/23/2025 1:25 PM SCALE OPERATOR 09/23/2025 10:18 PM SCALE OPERATOR Result Amira Anderson MD LAB BLOOD ORDERABLES Final Resul t Performing Organization Address [facility] Phone Number [facility] [address] Department [employer] [place], [place] [id number] * CRP (acute phase) (09/23/2025 1:25 PM SCALE OPERATOR) [facility] CRP <3.0 <=10.0 mg/L Blood 09/23/2025 1:25 PM SCALE OPERATOR 09/23/2025 8:38 PM SCALE OPERATOR Result Amira Anderson MD LAB BLOOD ORDERABLES Final Resul t Performing Organization Address [facility] Phone Number [facility] [address] [facility] [employer] [place], [place] [phone] * Creatine kinase (CK), total (09/23/2025 1:25 PM SCALE OPERATOR) [facility] CK 112 30 - 200 Units/L Blood 09/23/2025 1:25 PM SCALE OPERATOR 09/23/2025 8:38 PM SCALE OPERATOR Result Amira Anderson MD LAB BLOOD ORDERABLES Final Resul t Performing Organization Address [facility] Co de Phone Number [facility] [address] Department [place] [address] * (ABNORMAL) Comprehensive metabolic panel (09/23/2025 1:25 PM SCALE OPERATOR) Sodium 140 135 - 145 mmol/L Potassium, pl 4.1 3.3 - 4.9 mmol/L [facility] Chloride 104 97 - 110 mmol/L [facility] CO2 25 22 - 32 mmol/L [facility] Anion gap 11 2 - 15 mmol/L [facility] BUN 17 6 - 25 mg/dL [facility] Creatinine 0.49(L) 0.60 - 1.10 mg/dL [facility] Glucose 110 70 - 199 mg/dL [facility] Comment: Interpretive Data Fasting glucose >/= 126 mg/dl is diagnostic for diabetes. Fasting is defined as no caloric intake for at least 8 hours. Fasting glucose between 100 mg/dl to 125 mg/dl is diagnostic of prediabetes. In a patient with classic symptoms of hyperglycemia or hyperglycemic crisis, a random glucose >/= 200 mg/dl is diagnostic for diabetes. In the absence of unequivocal hyperglycemia, results should be confirmed by repeat testing. The classification and Diagnosis of Diabetes Diabetes Care 202; 46: S19-S40. Current interpretive data was last revised 2022. Calcium 9.2 8.5 - 10.3 mg/dL [facility] Bilirubin, total 0.2 0.1 - 1.2 mg/dL [facility] Protein, pl 6.4(L) 6.5 - 8.5 g/dL [facility] Albumin 3.9 3.5 - 5.0 g/dL [facility] Alk phos 179(H) 40 - 130 Units/L [facility] ALT 32 7 - 45 Units/L [facility] AST 31 10 - 45 Units/L [facility] Blood 09/23/2025 1:25 PM SCALE OPERATOR 09/23/2025 8:38 PM SCALE OPERATOR Aniyah Anderson MD LAB BLOOD ORDERABLES Final Resul t Performing Organization Address [facility] Co de Phone Number [facility] [address] Department [place] [address] * Screening Mammogram Bilateral W [place] (02/27/2025 12:35 PM CDT) Anatomical Region Laterality Modality Breast Bilateral Mammography 02/27/2025 12:3 5 PM CDT us Historical Provider IMG MAMMO PROCEDURES Brittany l Result * COLONOSCOPY IMAGES (12/22/2016) Anatomical Region Laterality Modality Other Narrative 12/22/2016 Ordered by an unspecified provider. Historical Provider GI PROCEDURE ORDERABLES F inal Result from Last 3 Months or Most Recently Relevant to Health Maintenance Insurance [facility] Care Teams Acid Supervisor Relationship Specialty Start Date [place] [address] PCP - General 02/11/17
== END 2025-10-15 13:42 | disposition home or self-care (01) ==
PROVIDERS: PCP Emergency Medicine; Visit Provider Emergency Medicine
DX: M54.9 Dorsalgia, unspecified (principal); R07.81 Pleurodynia
CPT/HCPCS: 71100; 72070

== ENCOUNTER 2025-10-18 14:06 | Outpatient (CLI) | payer BC, SELFPAY ==
--- NOTE | ~2025-10-18 | CT_ITS ---
EXAMINATION: CT diagnostic chest w con DATE: 10/18/2025 14:38 INDICATION: Solitary pulmonary nodule. Back pain. TECHNIQUE: Computed tomography (CT) of the chest was performed without intravenous contrast. The dose-length product was 129.49 mGy-cm. Automated exposure control and iterative reconstruction technique were employed. COMPARISON: Left rib series dated 10/15/2025 FINDINGS: No significant vascular abnormality. Heart size normal. No significant pleural or pericardial effusion. Thyroid gland unremarkable. No mediastinal lymphadenopathy. Fatty infiltration of the liver. Status post cholecystectomy. There are small 2 mm nodules in the left upper lobe, likely benign. No focal airspace consolidation. No pneumothorax. No endobronchial lesions. There are multiple healed left rib fractures corresponding to the nodular opacity seen on recent rib series. IMPRESSION: 1. Multiple healed left rib fractures are identified which correspond to the area of nodular opacification seen on left rib series. 2: Small left upper lobe nodules measuring 2 mm or less, likely benign. Reviewed, dictated and finalized at location I. PTIONIST DOCTOR'S OFFICE IMPRESSION: 1. Multiple healed left rib fractures are identified which correspond to the ar ea of nodular opacification seen on left rib series. 2: Small left upper lobe nodules measuring 2 mm or less, likely benign.
== END 2025-10-18 14:07 | disposition home or self-care (01) ==
LOC: MICIMG 14:07
PROVIDERS: PCP Family Medicine; Visit Provider Emergency Medicine
DX: R91.1 Solitary pulmonary nodule (principal); S22.42XD Multiple fractures of ribs, left side, subsequent encounter for fracture with routine healing; X58.XXXD Exposure to other specified factors, subsequent encounter; R91.8 Other nonspecific abnormal finding of lung field
CPT/HCPCS: 71260; Q9967

== ENCOUNTER 2025-10-22 14:49 | Outpatient (CLI) | payer BC, SELFPAY ==
--- OUTSIDE RECORDS SUMMARY | 2025-08-28 05:00 | XMS_ITS ---
Author Organization [facility] Address [address] [place] [address] Care Team Providers Care Assembler Faucets Name Role Phone Jairo FOSTER, Avelino Primary Care Provider Aniyah Pfeiffer [phone] Allergies Allergen (clinical drug ingredient) Drug/Non Drug Allergy documented on EMR Reaction Allergy Type Onset Date Status Penicillin Unknown Drug Allergy Active REASON FOR VISIT Lupus Encounters Encounter Location Date Provider Diagnosis [facility] [address] [place] [address] 08/28/2025 Aniyah Hernandez Plan Of Treatment Next Appt Details Provider Name:Aniyah Hernandez, 04/02 10:00:00 AM, [address], [place], [address], Progress Notes * Thao GARCIAKatharineB:1965 (60 yo F)Acc No.[id number]:08/28/2025 Patient: Aggie BUCKNER Appointment Provider: Erma HERNANDEZ MD :1965 A ge:60 Y S ex:Female Date:08/28/2025 Address:[address] [place], [place] [id number] Pcp:Avelino Gill MD Subjective: * Chief Complaints: * 1 . Lupus. 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 ALT 33 07/25/25, WBC/Hb/plts normal, Cr 0.72, GFR >60, AST 46, ALT normal, alk phos 151, UA (-). * Medical History: p ositive ISABEL, ?lupus, ADHD. * Surgical History: c holecystectomy . * Family History: diabetes, CVA, heart disease, lung cancer, breast cancer, prostate cancer. * Allergies: P enicillin. 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 ALT 33 07/25/25, WBC/Hb/plts normal, Cr 0.72, GFR >60, AST 46, ALT normal, alk phos 151, UA (-)
--- OUTSIDE RECORDS SUMMARY | 2025-10-22 17:09 | XMS_ITS | Clinical Summary ---
Author Organization [facility] Address [address] [place] [address] Care Team Providers Care Rfp Writer Name Role Phone Unavailable Primary Care Provider Unavailabl e Social History Tobacco Use Types Packs/Day Years Used Date Smoking Tobacco: Never Assessed Comments Unknown Sex and Gender Information Value Date Recorded Sex Assigned at Not on file Legal Sex Female 6:16 PM [employer] Gender Identity Not on file Sexual Orientation [...] Most Recently Relevant to Health Maintenance Insurance [facility]
--- OUTSIDE RECORDS SUMMARY | 2025-10-22 17:10 | XMS_ITS | Clinical Summary ---
Author Organization [facility] Address [address] [place] [address] Care Team Providers Care Air Conditioning Unit Tester Name Role Phone Mario Small MD Primary Care Provider [phone] Source Comments [facility],non-owned Affiliates and Associated Physician Practices is amultiple site organization consisting of ambulatory clinics and hospital sitesin [place], [place] and [place]. This disclosure is being madepursuant to the Care Everywhere program and may not contain all information available regarding this patient. Last updated 18.[facility] Allergies No known active allergies Immunizations Immunization [...] patient's age to complete this topic Insurance [place] [address] [place] [address] [facility] SELF PAY NO INSURANCE Member Subscriber Plan / Payer (Ef fective for All Dates) Name:Deborah Garcia Member ID:Not on file Relation to Subscriber:Not on file Name:DEBORAH GARCIA Subscriber ID:Not on file (Home) Address: [address] [place] [address] Payer ID:Not on file Group ID:Not on file Type:Self Pay Address: [place], [place] [facility] SELF PAY NO INSURANCE Member Subscriber Plan / Payer (Ef fective for All Dates) Name:Deborah Garcia Member ID:Not on file Relation to Subscriber:Not on file Name:DEBORAH GARCIA Subscriber ID:Not on file (Home) Address: [address] [place] [address] Payer ID:Not on file Group ID:Not on file Type:Self Pay Address: [place], [place] [facility] SELF PAY NO INSURANCE Member Subscriber Plan / Payer (Ef fective for All Dates) Name:Deborah Garcia Member ID:Not on file Relation to Subscriber:Not on file Name:DEBORAH GARCIA Subscriber ID:Not on file (Home) Address: [address] [place] [address] Payer ID:Not on file Group ID:Not on file Type:Self Pay Address: [place] [facility] SELF PAY NO INSURANCE Member Subscriber Plan / Payer (Ef fective for All Dates) Name:Deborah Garcia Member ID:Not on file Relation to Subscriber:Not on file Name:DEBORAH GARCIA Subscriber ID:Not on file (Home) Address: [address] [place] [address] Payer ID:Not on file Group ID:Not on file Type:Self Pay Address: [place] [facility] SELF PAY NO INSURANCE Member Subscriber Plan / Payer (Ef fective for All Dates) Name:Deborah Garcia Member ID:Not on file Relation to Subscriber:Not on file Name:GARCIADEBORAH Subscriber ID:Not on file (Home) Address: [address] [place] [address] [place] [address] Payer ID:Not on file Group ID:Not on file Type:Self Pay Address: [place] [facility] SELF PAY NO INSURANCE Member Subscriber Plan / Payer (Ef fective for All Dates) Name:GarciaThaoa Member ID:Not on file Relation to Subscriber:Not on file Name:DEBORAH GARCIA Subscriber ID:Not on file (Home) Address: [address] [place] [address] [place] [address] Payer ID:Not on file Group ID:Not on file Type:Self Pay Address: [place], [place] Care Teams Air Conditioning Unit Tester Relationship Specialty Start Date End [place] [address] PCP - General Internal Medicine 03/14/17
--- OUTSIDE RECORDS SUMMARY | 2025-10-22 17:10 | XMS_ITS | Clinical Summary ---
Author Organization [facility] [address] [facility] Address [address] [place] [address] Care Team Providers Care Care Navigator Name Role Phone Mario Small MD Primary Care Provider [phone] Allergies Active Allergy Reactions Criticality Noted Date [...] 12/18/2024 Assessment & Plan (12/18/2024 2:38 PM COMMUNITY SUPPORT WORKER): Continues to follow response. WIll monitor response. NO side effects noted. Check iron levels. Polyarthralgia 12/18/2024 Assessment & Plan (12/18/2024 2:38 PM COMMUNITY SUPPORT WORKER): Continue to follow response. NO change at the present time. S/P cholecystectomy 12/18/2024 Assessment & Plan (12/18/2024 2:39 PM COMMUNITY SUPPORT WORKER): No dumping. Stable at the present itme. [...] tracings do show PVCs correlating with symptoms. [place] unclear. Recommend ambulatory monitoring to clarify mechanism and burden. Will also arrange for imaging to r/o structural heart disease. Management options depend on burden and may include observation, medical therapy or catheter ablation. --30d event monitor --Transthoracic echocardiogram --F/u 6 weeks to reassess Polyarthropathy 01/29/2018 Synovitis 03/30/2014 Overview (02/16/2017): SYNOVITIS NOS Encounters Date Type Department Care Team Description 10/15/2025 Orders Only [facility] Health Information Management [address] [place] [address] Scanning, Provider 09/25/2025 Telephone [facility] [address] [place] [address] Mario Small MD 09/23/2025 1:23 PM COMMUNITY SUPPORT WORKER - 09/23/2025 11:59 PM COMMUNITY SUPPORT WORKER Hospital Encounter [facility] [address] [place] [address] Arthralgia, unspecified joint Discharge Disposition: Discharge to home or self care 09/23/2025 1:20 PM COMMUNITY SUPPORT WORKER Lab [facility] [address] [address] from Last 3 Months Immunizations [...] Status Comments Father Cirilo Short Father's Brother Merle Short Maternal Grandfather Everardo Gar Mother Maribell Torres Mother's Sister 1 Alive Mother's Sister 2 Paternal Grandfather Michael Short Sister 1 Kaylene Short Sister 2 Rena Wilkinss Sister 3 Ventura Fleming Social History Tobacco [...] on file Legal Sex Female 11:31 PM COMMUNITY SUPPORT WORKER Gender Identity Not on file Sexual Orientation Not on file Obstetrics History Para Term AB IAB SAB Ectopic Multiple Livin g Live Births 2 2 2 Date Outcome GA Total Labor Labor/2nd/3rd Weight Sex Type Anes PTL Nettie A1 A5 Name Clin Term Term Last Filed Vital Signs Vital Sign Reading Time Taken Comments Blood Pressure 124/74 12/18/2024 2:05 PM COMMUNITY SUPPORT WORKER Pulse 78 12/18/2024 2:05 PM COMMUNITY SUPPORT WORKER Temperature 36.8 C (98.2 F) 12/18/2024 2:05 PM COMMUNITY SUPPORT WORKER Respiratory Rate 16 06/01/2022 3:11 PM CDT Oxygen Saturation 98% 12/18/2024 2:05 PM COMMUNITY SUPPORT WORKER Inhaled Oxygen Concentration - - Weight 54 kg (119 lb 1.6 oz) 12/18/2024 2:05 PM COMMUNITY SUPPORT WORKER Height 147.3 cm (4' 10) 12/18/2024 2:05 PM COMMUNITY SUPPORT WORKER Body Mass Index 24.89 12/18/2024 2:05 PM COMMUNITY SUPPORT WORKER Plan of Treatment Health Maintenance Due Date [...] Procedure Name Priority Date/Time Associated Diagnosis Comments SCAN - RADIOLOGY/IMAGING 10/15/2025 XR HAND BILATERAL 3 OR MORE VIEWS OF EACH Schedule Routine, Read Routine (OP Routine) 09/23/2025 1:47 PM COMMUNITY SUPPORT WORKER Arthralgia, unspecified joint EGFR Routine 09/23/2025 1:25 PM COMMUNITY SUPPORT WORKER BLOOD MISC TO KARTHAUS Routine 09/23/2025 1: 25 PM COMMUNITY SUPPORT WORKER BLOOD MISC TO KARTHAUS Routine 09/23/2025 1: 25 PM COMMUNITY SUPPORT WORKER DIFFERENTIAL AUTO Routine 09/23/2025 1:2 5 PM COMMUNITY SUPPORT WORKER SJOGRENS SYNDROME-B ANTIBODY Routine 09/23/2025 1:25 PM COMMUNITY SUPPORT WORKER SJOGRENS SYNDROME-A ANTIBODY Routine 09/23/2025 1:25 PM COMMUNITY SUPPORT WORKER CASAREZ ANTIBODIES Routine 09/23/2025 1:25 PM COMMUNITY SUPPORT WORKER ERYTHROCYTE SEDIMENTATION RATE Routine 09/23/2025 1:25 PM COMMUNITY SUPPORT WORKER SCL 70 ANTIBODIES Routine 09/23/2025 1:2 5 PM COMMUNITY SUPPORT WORKER BOX TENDER ANTIBODIES Routine 09/23/2025 1:25 PM COMMUNITY SUPPORT WORKER RHEUMATOID FACTOR Routine 09/23/2025 1:2 5 PM COMMUNITY SUPPORT WORKER LUPUS ANTICOAGULANT PANEL PLUS REFLEXES Routine 09/23/2025 1:25 PM COMMUNITY SUPPORT WORKER G6PD QUALITATIVE WITH REFLEX TO QUANTITATIVE Routine 09/23/2025 1:25 PM COMMUNITY SUPPORT WORKER ANTI-DOUBLE STRANDED DNA ANTIBODIES Routine 09/23/2025 1:25 PM COMMUNITY SUPPORT WORKER CREATINE KINASE (CK), TOTAL Routine 09/23/2025 1:25 PM COMMUNITY SUPPORT WORKER COMPREHENSIVE METABOLIC PANEL Routine 09/23/2025 1:25 PM COMMUNITY SUPPORT WORKER C4 COMPLEMENT Routine 09/23/2025 1:25 PM COMMUNITY SUPPORT WORKER C3 COMPLEMENT Routine 09/23/2025 1:25 PM COMMUNITY SUPPORT WORKER CBC WITH AUTO DIFFERENTIAL Routine 09/23/2025 1:25 PM COMMUNITY SUPPORT WORKER CARDIOLIPIN ANTIBODY, IGG AND IGM Routine 09/23/2025 1:25 PM COMMUNITY SUPPORT WORKER CRP (ACUTE PHASE) Routine 09/23/2025 1:2 5 PM COMMUNITY SUPPORT WORKER BETA 2 GLYCOPROTEIN ANTIBODY, IGG, IGM Routine 09/23/2025 1:25 PM COMMUNITY SUPPORT WORKER CYCLIC CITRUL PEPTIDE ANTIBODY, IGG Routine 09/23/2025 1:25 PM COMMUNITY SUPPORT WORKER ISABEL QUALITATIVE WITH REFLEX TO ISABEL QUANTITATIVE Routine 09/23/2025 1:25 PM COMMUNITY SUPPORT WORKER SCREENING MAMMOGRAM BILATERAL W CHOCO Schedule Routine, Read Routine (OP Routine) 02/27/2025 12:35 PM CDT COLONOSCOPY IMAGES 12/22/2016 from Last 3 Months or Most Recently Relevant to Health Maintenance Results * SCAN - RADIOLOGY/IMAGING (10/15/2025) Anatomical Region Laterality Modality Other Provider Scanning Final Result * XR Hand Bilateral 3 or More Views of Each (09/23/2025 1:47 PM COMMUNITY SUPPORT WORKER) Anatomical Region Laterality Modality Upper Extremities, Hand Digital Radiography 09/23/2025 2:01 PM COMMUNITY SUPPORT WORKER Impressions 09/23/2025 2:01 PM COMMUNITY SUPPORT WORKER 1. There is mild periarticular osteopenia both hands without acute fracture or dislocation or significant degenerative changes. 2. Mild soft tissue swelling bilateral 2nd digits. Electronically signed by: Ivis Maurice M.D. Narrative 09/23/2025 2:01 PM COMMUNITY SUPPORT WORKER BILATERAL HANDS 3 OR MORE VIEWS, DATE: [...] Anticoagulant Panel plus Reflexes (09/23/2025 1:25 PM COMMUNITY SUPPORT WORKER) PT 10.5 10.2 - 13.5 sec Comment:Testing performed by : [facility], [address] [place] [address] INR 0.93 0.90 - 1.20 [facility] Comment: Interpretive data Oral anticoagulant therapeutic ranges: Venous thromboembolism prophylaxis or treatment: 2.0-3.0 CARDIOLOGY Standard range: 2.0-3.0 High-intensity range: 2.5-3.5 Refer to indication-specific guidelines for appropriate target ranges for prosthetic heart valve replacement. Current interpretive data was last revised on 2019. Testing performed by: [facility], [address] [place] [address] aPTT 32 26 - 38 sec [facility] Comment: Interpretive Data Heparin therapeutic range: 66.0 - 100.0 seconds. Range based on correlation with therapeutic heparin activity range of 0.3 - 0.7 Units/mL. Testing performed by: [facility], [address] [place]., [address] DRVVT screen ratio 0.97 0.00 - 1.20 Ratio [facility] Comment:Testing performed by : [facility], [address] [place]., [address] SCT Screen Ratio 0.99 0.00 - 1.16 Ratio [facility] Comment:Testing performed by : [facility], [address] [facility], [address] Lupus anticoagulant, interp Negative [facility] Comment: Interpretive data Lupus anticoagulants [...] other than heparin. References: 1) Elizabeth V, Erick A, [place] JH, Orobdulial TL, Nitin M, De Maricruz PG. Update of the guidelines for lupus anticoagulant detection. J Thromb Haemost. 2009; 7:5068-8310. 2. Meng S. et al. International consensus statement on an update of the classification criteria for definite antiphospholipid syndrome (APS). J Thromb Haemost. 2006; 4:295-306. Current interpretive data was last revised on 2018 Testing performed by: [facility], [address] [place]., [address] Blood 09/23/2025 1:25 PM COMMUNITY SUPPORT WORKER 09/23/2025 7:01 PM COMMUNITY SUPPORT WORKER us Aniyah Anderson MD LAB BLOOD ORDERABLES Final Resul t [facility] [address] Department [place] [address] * G6PD qualitative with reflex to quantitative (09/23/2025 1:25 PM COMMUNITY SUPPORT WORKER) G6PD Normal Normal Comment: Interp data: G6PD activity should be interpreted in the context of a patient's hematocrit. Hematocrit < 20% may lead to a falsely deficient result, while hematocrit > 50% may lead to a falsely normal result. Current interpretive data was last revised on 2020. Testing performed by: [facility], [address] [place] [address]., [address] Blood 09/23/2025 1:25 PM COMMUNITY SUPPORT WORKER 09/23/2025 7:55 PM COMMUNITY SUPPORT WORKER us Aniyah Anderson MD LAB BLOOD ORDERABLES Final Resul t [facility] [address] Department [place] [address] * (ABNORMAL) ISABEL ab ql w/rflx to ISABEL qn (09/23/2025 1:25 PM COMMUNITY SUPPORT WORKER) ISABEL Positive( A) Comment: Interpretive Data Normal [...] last revised on 2020. Testing performed by: [facility], [address] [place] [address]., [address] ISABEL, quant 1:320 titer [facility] Comment:Testing performed by : [facility], [address] [place] [address]., [address] ISABEL, interp Homogeneo us(A) [facility] Comment:Testing performed by : [address] [address] Blood 09/23/2025 1:25 PM COMMUNITY SUPPORT WORKER 09/23/2025 7:59 PM COMMUNITY SUPPORT WORKER us Aniyah Anderson MD LAB BLOOD ORDERABLES Final Resul t [facility] [address] Department [place] [address] * Beta 2 glycoprotein antibody, IgG, IgM (09/23/2025 1:25 PM COMMUNITY SUPPORT WORKER) [facility] Beta-2 glycoprotein I, IgG <1.4 <=19.9 units/mL Comment: Interpretive Data Negative: <20 U/mL Positive: > or = 20 U/mL Beta-2 glycoprotein 1 (Beta-2 GP1) antibodies are a more specific marker of thrombotic risk. It is expected that some samples will be ACL positive and Beta- 2 [id number]. In order to improve specificity, the International Congress on Antiphospholipid Antibodies recommends Beta-2 GP1 antibodies of IgG or IgM isotype (> the 99th percentile), obtained twice, at least 12 weeks apart, to support a diagnosis of antiphospholipid syndrome. The cutoff for this assay was developed from data based on the 99th percentile. These results were obtained with the Windcentrale 2200 System. Beta 2GP1 IgG values obtained with different manufacturers' assay methods may not be used interchangeably. Current interpretive data was last revised on 2017. Testing performed by: [facility], [address] [place]., [address] Beta-2 glycoprotein I, IgM <1.5 <=19.9 units/mL [facility] Comment: Interpretive Data Negative: <20 [...] factor. These results were obtained with the Windcentrale 2200 System. Beta-2 GP1 IgM values obtained with different manufacturers' assay methods may not be used interchangeably. Current interpretive data was last revised on 2017. Testing performed by: [facility], [address] [place] [address] Blood 09/23/2025 1:25 PM COMMUNITY SUPPORT WORKER 09/23/2025 9:48 PM COMMUNITY SUPPORT WORKER Aniyah Anderson MD LAB BLOOD ORDERABLES Final Resul t Performing Organization Address [facility] Co de Phone Number [facility] [address] [place] [address] * BLOOD MISC TO KARTHAUS (09/23/2025 1:25 PM COMMUNITY SUPPORT WORKER) Test name, chem AB2GP Beta-2 Glycoprotein 1 Antibodies, IgA, Serum [place] ref Lab Misc See Footnote [facility] Comment: Test Result Flag Unit RefValue Beta 2 GP1 Ab IgA, S <9.4 LAURY -- REFERENCE VALUE -- <15.0 (Negative) Test Performed by: [facility] [place] [place] [address] Cutting Tool Sharpener: Lisset Coleman Ph.D.; CLIA# [id number] Blood 09/23/2025 1:25 PM COMMUNITY SUPPORT WORKER 09/23/2025 8:05 PM COMMUNITY SUPPORT WORKER Narrative [facility] - 09/27/2025 8:56 PM COMMUNITY SUPPORT WORKER AB2GP Beta-2 Glycoprotein 1 Antibodies, IgA, Serum us Aniyah Anderson MD LAB BLOOD ORDERABLES Final Resul t Performing Organization Address [facility] Co de Phone Number [facility] [address] Department [employer] [place], [place] [id number] [place] ref [facility] * BLOOD MISC TO KARTHAUS (09/23/2025 1:25 PM COMMUNITY SUPPORT WORKER) Test name, chem ACLIP Phospholipid (Cardiolipin) Antibodies, IgA, [place] ref Lab [facility] See Footnote [facility] Comment: Test Result Flag Unit RefValue Phospholipid Ab IgA, S <9.4 APL -- REFERENCE VALUE -- <15.0 (Negative) Test Performed by: [facility] [address] [place] [address] Cutting Tool Sharpener: Lisset Coleman Ph.D.; CLIA# [id number] Blood 09/23/2025 1:25 PM COMMUNITY SUPPORT WORKER 09/23/2025 5:48 PM COMMUNITY SUPPORT WORKER Narrative [facility] - 09/25/2025 11:47 AM COMMUNITY SUPPORT WORKER ACLIP us Aniyah Anderson MD LAB BLOOD ORDERABLES Final Resul t [facility] [address] Department [place] [address] [place] ref [facility] * Anti-double stranded DNA abs (09/23/2025 1:25 PM COMMUNITY SUPPORT WORKER) dsDNA Ab <1.0 <=4.0 IUnits/mL Comment: Interpretive Data Negative: < or = 4 IUnits/mL Indeterminate: 5 - 9 IUnits/mL Positive: > or = 10 IUnits/mL Current interpretive data was last revised on 2017. Testing performed by: [facility], [address] [facility] [place] [address] Blood 09/23/2025 1:25 PM COMMUNITY SUPPORT WORKER 09/23/2025 9:48 PM COMMUNITY SUPPORT WORKER us Aniyah Anderson MD LAB BLOOD ORDERABLES Final Resul t Performing Organization Address [facility] Co de Phone Number [facility] [address] [place] [address] * SCL 70 abs (09/23/2025 1:25 PM COMMUNITY SUPPORT WORKER) Anti-Scl70, IgG <0.2 <=0.9 Ab Index Comment: Interpretive Data Negative: < 1.0 Ab Index Positive: > or = 1.0 Ab Index Current interpretive data was last revised on 2017. Testing performed by: [facility], [address] [place]., [address] Blood 09/23/2025 1:25 PM COMMUNITY SUPPORT WORKER 09/23/2025 9:48 PM COMMUNITY SUPPORT WORKER us Aniyah Anderson MD LAB BLOOD ORDERABLES Final Resul t Performing Organization Address [facility] de Phone Number [facility] [address] Department [place] [address] * eGFR (09/23/2025 1:25 PM COMMUNITY SUPPORT WORKER) eGFR >90 >=60 mL/min/1. 73 m2 Comment: [...] last reviewed 2021. Blood 09/23/2025 1:25 PM COMMUNITY SUPPORT WORKER 09/23/2025 8:38 PM COMMUNITY SUPPORT WORKER us Aniyah Anderson MD LAB BLOOD ORDERABLES Final Resul t [facility] [address] Department [place] [address] * Differential, auto (09/23/2025 1:25 PM COMMUNITY SUPPORT WORKER) Neutrophil abs 3.40 1.50 - 6.50 K/cumm Imm gran abs 0.01 0.00 - 0.10 K/cumm [facility] Lymphocyte abs 1.67 0.80 - 3.30 K/cumm [facility] Monocyte abs 0.41 0.20 - 0.80 K/cumm [facility] Eosinophil abs 0.09 0.00 - 0.50 K/cumm [facility] Basophil abs 0.04 0.00 - 0.10 K/cumm [facility] Neutrophil pct 60.5 % [facility] Comment: Interpretive Data Percent cell count reference ranges are not reported, since discordance with absolute values may lead to misinterpretation of CBC data. Current Interpretive Data was last revised on 2018. Imm gran pct 0.2 % [facility] Comment: Interpretive Data Percent cell count reference ranges are not reported, since discordance with absolute values may lead to misinterpretation of CBC data. Current Interpretive Data was last revised on 2018. Lymphocyte pct 29.7 % [facility] Comment: Interpretive Data Percent cell count reference ranges are not reported, since discordance with absolute values may lead to misinterpretation of CBC data. Current Interpretive Data was last revised on 2018. Monocyte pct 7.3 % [facility] Comment: Interpretive Data Percent cell count reference ranges are not reported, since discordance with absolute values may lead to misinterpretation of CBC data. Current Interpretive Data was last revised on 2018. Eosinophil pct 1.6 % [facility] Comment: Interpretive Data Percent cell count reference ranges are not reported, since discordance with absolute values may lead to misinterpretation of CBC data. Current Interpretive Data was last revised on 2018. Basophil pct 0.7 % [facility] Comment: Interpretive Data Percent cell count reference ranges are not reported, since discordance with absolute values may lead to misinterpretation of CBC data. Current Interpretive Data was last revised on 2018. Blood 09/23/2025 1:25 PM COMMUNITY SUPPORT WORKER 09/23/2025 7:49 PM COMMUNITY SUPPORT WORKER us Aniyah Anderson MD LAB BLOOD ORDERABLES Final Resul t Performing Organization Address [facility] Co de Phone Number [facility] [address] Department [place] [address] * Casarez abs (09/23/2025 1:25 PM COMMUNITY SUPPORT WORKER) Anti-HASEEB, SM <0.2 <=0.9 Ab Index Comment: Interpretive Data Negative: < 1.0 Ab Index Positive: > or = 1.0 Ab Index Current interpretive data was last revised on 2017. Testing performed by: [facility], [address] [place] [address]., [address] Blood 09/23/2025 1:25 PM COMMUNITY SUPPORT WORKER 09/23/2025 9:48 PM COMMUNITY SUPPORT WORKER Result Amira Anderson MD LAB BLOOD ORDERABLES Final Resul t Performing Organization Address [facility] de Phone Number [facility] [address] Department [place] [address] * BOX TENDER abs (09/23/2025 1:25 PM COMMUNITY SUPPORT WORKER) BOX TENDER ab <0.2 <=0.9 Ab Index Comment: Interpretive Data Negative: < 1.0 Ab Index Positive: > or = 1.0 Ab Index Current interpretive data was last revised on 2017. Testing performed by: [facility], [address] [place] [address]., [address] Blood 09/23/2025 1:25 PM COMMUNITY SUPPORT WORKER 09/23/2025 9:48 PM COMMUNITY SUPPORT WORKER us Aniyah Anderson MD LAB BLOOD ORDERABLES Final Resul t [facility] [address] [facility] [place] [address] * C4 complement (09/23/2025 1:25 PM COMMUNITY SUPPORT WORKER) [facility] Complement C4 28 10 - 40 mg/dL Blood 09/23/2025 1:25 PM COMMUNITY SUPPORT WORKER 09/23/2025 10:18 PM COMMUNITY SUPPORT WORKER us Aniyah Anderson MD LAB BLOOD ORDERABLES Final Resul t Performing Organization Address [facility] Co de Phone Number [facility] [address] [employer] [place] [address] * (ABNORMAL) CBC with auto differential (09/23/2025 1:25 PM COMMUNITY SUPPORT WORKER) [facility] WBC 5.62 3.80 - 9.90 K/cumm Hgb 11.9 11.9 - 15.5 g/dL [facility] Hct 37.9 35.6 - 45.5 % [facility] Plt 268 150 - 400 K/cumm [facility] MPV 10.8 9.1 - 12.3 fL [facility] RBC 4.04 3.90 - 5.20 M/cumm [facility] MCV 93.8 81.3 - 96.4 fL [facility] MCH 29.5 27.1 - 33.3 pg [facility] MCHC 31.4(L) 32.3 - 35.7 g/dL [facility] RDW CV 14.4 11.1 - 14.9 % [facility] RDW SD 49.1(H) 35.7 - 48.1 fL [facility] NRBC abs 0.00 0.00 - 0.01 K/cumm [facility] Blood 09/23/2025 1:25 PM COMMUNITY SUPPORT WORKER 09/23/2025 7:49 PM COMMUNITY SUPPORT WORKER Result Amira Anderson MD LAB BLOOD ORDERABLES Final Resul t Performing Organization Address [facility] Co de Phone Number [facility] [address] Department [place] [address] * Cyclic citrul peptide antibody, IgG (09/23/2025 1:25 PM COMMUNITY SUPPORT WORKER) CCP Ab <0.5 <=2.9 units/mL Comment: Interpretive data Negative: <3 units/mL Positive: > or equal to 3 units/mL Current interpretive data was last revised on 2017. Testing performed by: [facility], [address] [place] [address] Blood 09/23/2025 1:25 PM COMMUNITY SUPPORT WORKER 09/23/2025 9:48 PM COMMUNITY SUPPORT WORKER us Aniyah Anderson MD LAB BLOOD ORDERABLES Final Resul t Performing Organization Address [facility] de Phone Number [facility] [address] Department [employer] [place] [address] * Cardiolipin antibody, IgG and IgM (09/23/2025 1:25 PM COMMUNITY SUPPORT WORKER) Pathologist [facility] Cardiolipin, IgG <1.6 <=19.9 GPL U/mL Comment: [...] BOZENA. These results were obtained with the ThromboVision BioPlex 2200 System. Cardiolipin IgG values obtained with different manufacturers' assay methods may not be used interchangeably. Current interpretive data was last revised on 2017. Testing performed by: [facility], [address] [place] [address] Cardiolipin, IgM <1.5 <=19.9 MPL U/mL [facility] Comment: Interpretive Data Negative: <20 MPL U/mL [...] antibodies. These results were obtained with the ThromboVision BioPlex 2200 System. Cardiolipin IgM values obtained with different manufacturers' assay methods may not be used interchangeably. Current interpretive data was last revised on 2017. Testing performed by: [facility], [address] [place] [address] Blood 09/23/2025 1:25 PM COMMUNITY SUPPORT WORKER 09/23/2025 9:48 PM COMMUNITY SUPPORT WORKER us Aniyah Anderson MD LAB BLOOD ORDERABLES Final Resul t [facility] [address] Department [place] [address] * Sjogren's syndrome B ab (09/23/2025 1:25 PM COMMUNITY SUPPORT WORKER) Anti-HASEEB, SS-B <0.2 <=0.9 Ab Index Comment: Interpretive Data Negative: < 1.0 Ab Index Positive: > or = 1.0 Ab Index Current interpretive data was last revised on 2017. Testing performed by: [facility], [address] [place] [address]., [address] Blood 09/23/2025 1:25 PM COMMUNITY SUPPORT WORKER 09/23/2025 9:48 PM COMMUNITY SUPPORT WORKER us Aniyah Anderson MD LAB BLOOD ORDERABLES Final Resul t Performing Organization Address [facility] Co de Phone Number [facility] [address] [facility] [employer] [place], [place] [id number] * Sjogren's syndrome A ab (09/23/2025 1:25 PM COMMUNITY SUPPORT WORKER) Anti-HASEEB, SS-A <0.2 <=0.9 Ab Index Comment: Interpretive Data Negative: < 1.0 Ab Index Positive: > or = 1.0 Ab Index Current interpretive data was last revised on 2017. Testing performed by: [facility], [address] [place] [address]., [id number] Blood 09/23/2025 1:25 PM COMMUNITY SUPPORT WORKER 09/23/2025 9:48 PM COMMUNITY SUPPORT WORKER us Aniyah Anderson MD LAB BLOOD ORDERABLES Final Resul t [facility] [address] [facility] [place] [address] * Erythrocyte sedimentation rate (09/23/2025 1:25 PM COMMUNITY SUPPORT WORKER) Pathologist [facility] Erythrocyte sedimentation rate 11 1 - 30 mm/hr Blood 09/23/2025 1:25 PM COMMUNITY SUPPORT WORKER 09/23/2025 7:49 PM COMMUNITY SUPPORT WORKER us Aniyah Anderson MD LAB BLOOD ORDERABLES Final Resul t Performing Organization Address [facility] Co de Phone Number [facility] [address] Department [place], [place] [id number] * Rheumatoid factor (09/23/2025 1:25 PM COMMUNITY SUPPORT WORKER) Rheumatoid factor, quant <10 <=15 IUnits/mL Blood 09/23/2025 1:25 PM COMMUNITY SUPPORT WORKER 09/23/2025 8:38 PM COMMUNITY SUPPORT WORKER us Aniyah Anderson MD LAB BLOOD ORDERABLES Final Resul t Performing Organization Address [facility] de Phone Number [facility] [address] [place] [address] * C3 complement (09/23/2025 1:25 PM COMMUNITY SUPPORT WORKER) Complement C3 118 90 - 180 mg/dL Blood 09/23/2025 1:25 PM COMMUNITY SUPPORT WORKER 09/23/2025 10:18 PM COMMUNITY SUPPORT WORKER Result Amira Anderson MD LAB BLOOD ORDERABLES Final Resul t Performing Organization Address [facility] Co de Phone Number [facility] [address] Department of [place] [place], [place] [id number] * CRP (acute phase) (09/23/2025 1:25 PM COMMUNITY SUPPORT WORKER) CRP <3.0 <=10.0 mg/L Blood 09/23/2025 1:25 PM COMMUNITY SUPPORT WORKER 09/23/2025 8:38 PM COMMUNITY SUPPORT WORKER Result Amira Anderson MD LAB BLOOD ORDERABLES Final Resul t Performing Organization Address [facility] Co de Phone Number [facility] [address] [place] [address] * Creatine kinase (CK), total (09/23/2025 1:25 PM COMMUNITY SUPPORT WORKER) Pathologist [facility] CK 112 30 - 200 Units/L Blood 09/23/2025 1:25 PM COMMUNITY SUPPORT WORKER 09/23/2025 8:38 PM COMMUNITY SUPPORT WORKER us Aniyah Anderson MD LAB BLOOD ORDERABLES Final Resul t [facility] [address] Department [place] [address] * (ABNORMAL) Comprehensive metabolic panel (09/23/2025 1:25 PM COMMUNITY SUPPORT WORKER) Pathologist [facility] Sodium 140 135 - 145 mmol/L Potassium, pl 4.1 3.3 - 4.9 mmol/L [facility] Chloride 104 97 - 110 mmol/L [facility] CO2 25 22 - 32 mmol/L [facility] Anion gap 11 2 - 15 mmol/L [facility] BUN 17 6 - 25 mg/dL [facility] Creatinine 0.49(L) 0.60 - 1.10 mg/dL [facility] Glucose 110 70 - 199 mg/dL [facility] Comment: Interpretive Data Fasting glucose [...] classification and Diagnosis of Diabetes Diabetes Care 2021; 46: S19-S40. Current interpretive data was last revised 2022. Calcium 9.2 8.5 - 10.3 mg/dL [facility] Bilirubin, total 0.2 0.1 - 1.2 mg/dL [facility] Protein, pl 6.4(L) 6.5 - 8.5 g/dL [facility] Albumin 3.9 3.5 - 5.0 g/dL [facility] Alk phos 179(H) 40 - 130 Units/L [facility] ALT 32 7 - 45 Units/L [facility] AST 31 10 - 45 Units/L [facility] Blood 09/23/2025 1:25 PM COMMUNITY SUPPORT WORKER 09/23/2025 8:38 PM COMMUNITY SUPPORT WORKER Aniyah Anderson MD LAB BLOOD ORDERABLES Final Resul t [facility] [address] Department [place] [address] * Screening Mammogram Bilateral W [place] (02/27/2025 [...] Most Recently Relevant to Health Maintenance Insurance [facility] PREF OPTIONS [place] Care Teams Care Navigator Relationship Specialty Start Date End Date Mario Small MD [address] [place] [address] PCP - General 02/11/17
--- OUTSIDE RECORDS SUMMARY | 2025-10-22 17:10 | XMS_ITS | Patient Health Record ---
Author Organization [facility] aime Address [address] [place] [address] Care Team Providers Care Folder Stitcher Operator Name Role Phone Avelino Gill MD Primary Care Provider Jg estee JustinKellyg Unavailable [phone] Allergies Allergen (clinical drug ingredient) Drug/Non Drug Allergy documented on EMR Reaction Allergy Type Onset Date Status Penicillin Unknown Drug Allergy Active Results Component Value Reference Range Notes Cardio IgG IgM Reviewed date:09/24/2025 10:55:41 AM Interpretation: Performing Lab:[facility] , [facility]. [facility] [address] Notes/Report: Interpretive Data Negative: <20 MPL U/mL Positive: [...] antibodies. These results were obtained with the TUBE 2200 System. Cardiolipin IgM values obtained with different manufacturers' assay methods may not be used interchangeably. Current interpretive data was last revised on 2017. Cardiolipin Ab, IgG <1.6 <=19.9 GPL U/mL Interpretive Data Negative: <20 GPL U/mL Positive: [...] BOZENA. These results were obtained with the TUBE 2200 System. Cardiolipin IgG values obtained with different manufacturers' assay methods may not be used interchangeably. Current interpretive data was last revised on 2017. Cardiolipin Ab, IgM <1.5 <=19.9 MPL U/mL ISABEL Ql reflex to Qn Reviewed date:09/24/2025 05:33:09 PM Interpretation: Performing Lab:[facility] , [address] [place] [address]. [facility] [address] Notes/Report: ISABEL, Qual Positive Interpretive Data Normal range for ISABEL Qualitative Antibody = Negative. 1. ISABEL is performed using indirect immunofluorescence against HEp-2 cells 2. ISAEBL titers are performed on all positive qualitative [...] last revised on 2020. Testing performed by: [facility], [address] [place]., [address] ISABEL, Pako 1:320 Testing performed by: [facility], [address] [place]., [address] ISABEL Pattern 1 Homogeneous Testing performed by: [facility], [address] [facility], [place]., [address] Anti-CCP (Cyclic Citrullinat ed Peptide Ab) Reviewed date:09/24/2025 05:33:09 PM Interpretation: Performing Lab:[facility] , [address] [facility]. [place] [address] Notes/Report: CCP Ab <0.5 <=2.9 units/mL Interpretive data Negative: <3 units/mL Positive: > or equal to 3 units/mL Current interpretive data was last revised on 2017. Beta 2 Glycoprotein Ab IgG, IgM Reviewed date:09/24/2025 10:55:40 AM Interpretation: Performing Lab:[facility] , [address] [facility]. [place] [address] Notes/Report: B2GPI IgG <1.4 <=19.9 units/mL Interpretive Data Negative: <20 U/mL Positive: > or = 20 U/mL Beta-2 glycoprotein 1 (Beta-2 GP1) antibodies are a more specific marker of thrombotic risk. It is expected that some samples will be ACL positive and Beta-2 [id number]. In order to improve specificity, the International Congress on Antiphospholipid Antibodies recommends Beta-2 GP1 antibodies of IgG or IgM isotype (> the 99th percentile), obtained twice, at least 12 weeks apart, to support a diagnosis of antiphospholipid syndrome. The cutoff for this assay was developed from data based on the 99th percentile. These results were obtained with the TUBE 2200 System. Beta 2GP1 IgG values obtained with different manufacturers' assay methods may not be used interchangeably. Current interpretive data was last revised on 2017. B2GPI IgM <1.5 <=19.9 units/mL Interpretive Data Negative: <20 U/mL Positive: > or = 20 U/mL Beta- 2 glycoprotein 1 (Beta-2 GP1) antibodies are a more specific marker of thrombotic risk. It is expected that some samples will be ACL positive and Beta-2 GP1 negative. In order to improve specificity, [...] factor. These results were obtained with the TUBE 2200 System. Beta-2 GP1 IgM values obtained with different manufacturers' assay methods may not be used interchangeably. Current interpretive data was last revised on 2017. C Reactive Protein Reviewed date:09/23/2025 09:49:40 PM Interpretation: Performing Lab:[facility] , [address] [place] [address]. [facility] [address] Notes/Report: C-Reactive Protein <3.0 <=10.0 mg/L CBC w auto diff Reviewed date:09/23/2025 09:49:40 PM Interpretation: Performing Lab:[facility] , [address] [place] [address]. [facility] [address] Notes/Report: WBC 5.62 3.80-9.90 K/cumm Hgb 11.9 11.9-15.5 g/dL Hct 37.9 35.6-45.5 % Platelet Ct 268 150-400 K/cumm MPV 10.8 9.1-12.3 fL RBC 4.04 3.90-5.20 M/cumm MCV 93.8 81.3-96.4 fL MCH 29.5 27.1-33.3 pg MCHC 31.4 32.3-35.7 g/dL RDW CV 14.4 11.1-14.9 % RDW SD 49.1 35.7-48.1 fL NRBC Abs Auto 0.00 0.00-0.01 K/cumm Complement C3 Reviewed date:09/24/2025 10:55:41 AM Interpretation: Performing Lab:[facility] , [address] [place] [address]. [facility] [address] Notes/Report: Complement, C3 118 90-180 mg/dL Complement C4 Reviewed date:09/24/2025 10:55:41 AM Interpretation: Performing Lab:[facility] , [address] [place] [address]. [facility] [address] Notes/Report: Complement, C4 28 10-40 mg/dL Comprehensive metabolic pane l (CMP) Reviewed date:09/23/2025 09:49:40 PM Interpretation: Performing Lab:[facility] , [address] [place] [address]. [facility] [address] Notes/Report: Sodium 140 135-145 mmol/L Plasma Potassium 4.1 3.3-4.9 mmol/L Chloride 104 97-110 mmol/L Total CO2 25 22-32 mmol/L Anion Gap 11 2-15 mmol/L BUN 17 6-25 mg/dL Creatinine 0.49 0.60-1.10 mg/dL Glucose 110 70-199 mg/dL Interpretive Data Fasting glucose >/= 126 mg/dl [...] Current interpretive data was last revised 2022. Total Calcium 9.2 8.5-10.3 mg/dL Total Bilirubin 0.2 0.1-1.2 mg/dL Plasma Total Protein 6.4 6.5-8.5 g/dL Albumin 3.9 3.5-5.0 g/dL Alkaline Phosphatase 179 40-130 Units/L ALT 32 7-45 Units/L AST 31 10-45 Units/L Creatine Kinase Reviewed date:09/23/2025 09:49:40 PM Interpretation: Performing Lab:[facility] , [address] [place] [address]. [facility] [address] Notes/Report: Total CK 112 30-200 Units/L DS DNA Reviewed date:09/24/2025 10:55:40 AM Interpretation: Performing Lab:[facility] , [address] [place] [address]. [facility] [address] Notes/Report: Double Stranded DNA, Pako <1.0 <=4.0 IUnits/mL Interpretive Data Negative: < or = 4 IUnits/mL Indeterminate: 5 - 9 IUnits/mL Positive: > or = 10 IUnits/mL Current interpretive data was last revised on 2017. G6PD Ql Reviewed date:09/23/2025 09:49:40 PM Interpretation: Performing Lab:[facility] , [facility]. [place] [address] Notes/Report: G6PD, Qual Normal Normal Interp data: G6PD activity should be interpreted in the context of a patient's hematocrit. Hematocrit < 20% may lead to a falsely deficient result, while hematocrit > 50% may lead to a falsely normal result. Current interpretive data was last revised on 2020. Testing performed by: [facility], [address] [place] [address], [address] Lupus Anticoagulant w/Reflex Reviewed date:09/25/2025 09:38:20 PM Interpretation: Performing Lab:[facility] , [facility]. [place] [address] Notes/Report: PT 10.5 10.2-13.5 sec Testing performed by: [facility], [address] [facility], [address] INR 0.93 0.90-1.20 Interpretive data Oral anticoagulant therapeutic ranges: Venous thromboembolism prophylaxis or treatment: 2.0-3.0 CARDIOLOGY Standard range: 2.0-3.0 High-intensity range: 2.5-3.5 Refer to indication-specific guidelines for appropriate target ranges for prosthetic heart valve replacement. Current interpretive data was last revised on 2019. Testing performed by: [facility], [address] [place]., [address] aPTT 32 26-38 sec Interpretive Data Heparin therapeutic range: 66.0 - 100.0 seconds. Range based on correlation with therapeutic heparin activity range of 0.3 - 0.7 Units/mL. Testing performed by: [facility], [address] [facility], [address] DRVVT Screen Ratio 0.97 0.00-1.20 Ratio Testing performed by: [facility], [address] [facility], [address] SCT Scr Ratio 0.99 0.00-1.16 Ratio Testing performed by: [facility], [address] [place]., [address] [place] Interpretation Negative Interpretive data Lupus anticoagulants ([place]) are acquired [...] heparin. References: 1) Elizabeth V, Erick A, Windham JH, Orji TL, Nitin M, De Maricruz PG. Update of the guidelines for lupus anticoagulant detection. J Thromb Haemost. 2009; 7:9705-6898. 2. Meng Weber al. International consensus statement on an update of the classification criteria for definite antiphospholipid syndrome (APS). J Thromb Haemost. 2006; 4:295-306. Current interpretive data was last revised on 2018 Testing performed by: [facility], [address] [place]., [address] Rheumatoid Factor Reviewed date:09/23/2025 09:49:40 PM Interpretation: Performing Lab:[facility] , [address] [place] [address]. [facility] [address] Notes/Report: RF, Pako <10 <=15 IUnits/mL Ribonuclear Protein (PSYCHIATRIC SOCIAL WORKER) Ab Reviewed date:09/24/2025 10:55:40 AM Interpretation: Performing Lab:[facility] , [address] [place] [address]. [facility] [address] Notes/Report: PSYCHIATRIC SOCIAL WORKER Antibody <0.2 <=0.9 Ab Index Interpretive Data Negative: < 1.0 Ab Index Positive: > or = 1.0 Ab Index Current interpretive data was last revised on 2017. SCL 70 Antibodies Reviewed date:09/24/2025 10:55:40 AM Interpretation: Performing Lab:[facility] , [address] [place] [address]. [place] [address] Notes/Report: Scl 70 Ab, IgG <0.2 <=0.9 Ab Index Interpretive Data Negative: < 1.0 Ab Index Positive: > or = 1.0 Ab Index Current interpretive data was last revised on 2017. Sed Rate Reviewed date:09/23/2025 09:49:40 PM Interpretation: Performing Lab:[facility] , [address] [place] [address]. [place] [address] Notes/Report: ESR 11 1-30 mm/hr Casarez Ab. Reviewed date:09/24/2025 10:55:40 AM Interpretation: Performing Lab:[facility] , [address] [place] [address]. [facility] [address] Notes/Report: Casarez Antibody <0.2 <=0.9 Ab Index Interpretive Data Negative: < 1.0 Ab Index Positive: > or = 1.0 Ab Index Current interpretive data was last revised on 2017. SSA Ab Reviewed date:09/24/2025 10:55:40 AM Interpretation: Performing Lab:[facility] , [address] [place] [address]. [facility] [address] Notes/Report: SS A Antibody <0.2 <=0.9 Ab Index Interpretive Data Negative: < 1.0 Ab Index Positive: > or = 1.0 Ab Index Current interpretive data was last revised on 2017. SSB Ab Reviewed date:09/24/2025 10:55:40 AM Interpretation: Performing Lab:[facility] , [address] [facility]. [place] [address] Notes/Report: SS B Antibody <0.2 <=0.9 Ab Index Interpretive Data Negative: < 1.0 Ab Index Positive: > or = 1.0 Ab Index Current interpretive data was last revised on 2017. Differential Automated Reviewed date:09/23/2025 09:49:40 PM Interpretation: Performing Lab:[facility] , [address] [facility]. [place] [address] Notes/Report: Neut Abs 3.40 1.50-6.50 K/cumm ImmGran Abs 0.01 0.00-0.10 K/cumm Lymphocyte Abs 1.67 0.80-3.30 K/cumm Muhlenberg Abs 0.41 0.20-0.80 K/cumm Eos Abs 0.09 0.00-0.50 K/cumm Baso Abs 0.04 0.00-0.10 K/cumm Neut Pct 60.5 Interpretive Data Percent cell count reference ranges are not reported, since discordance with absolute values may lead to misinterpretation of CBC data. Current Interpretive Data was last revised on 2018. ImmGran Pct 0.2 Interpretive Data Percent cell count reference ranges are not reported, since discordance with absolute values may lead to misinterpretation of CBC data. Current Interpretive Data was last revised on 2018. Lymph Pct 29.7 Interpretive Data Percent cell count reference ranges are not reported, since discordance with absolute values may lead to misinterpretation of CBC data. Current Interpretive Data was last revised on 2018. Muh[place]berg Pct 7.3 Interpretive Data Percent cell count reference ranges are not reported, since discordance with absolute values may lead to misinterpretation of CBC data. Current Interpretive Data was last revised on 2018. Eos Pct 1.6 Interpretive Data Percent cell count reference ranges are not reported, since discordance with absolute values may lead to misinterpretation of CBC data. Current Interpretive Data was last revised on 2018. Baso Pct 0.7 Interpretive Data Percent cell count reference ranges are not reported, since discordance with absolute values may lead to misinterpretation of CBC data. Current Interpretive Data was last revised on 2018. eGFR Reviewed date:09/23/2025 09:49:40 PM Interpretation: Performing Lab:[facility] , [address] [place] [address]. [facility] [address] Notes/Report: eGFR >90 >=60 mL/min/1.73 m2 Interpretive Data Reference Interval Normal >/= 90 [...] Current interpretive data was last reviewed 2021. MESFIN MISC BLD Reviewed date:09/25/2025 09:38:20 PM Interpretation: Performing Lab:[facility] , [address] [place] [address]. [facility] [address] Notes/Report: ACLIP Keyword See Below ACLIP Phospholi pid (Cardiolipin) Antibodies, IgA, Misc Result See Footnote Test Result Flag Unit RefValue Phospholipid Ab IgA, S <9.4 APL -- REFERENCE VALUE -- <15.0 (Negative) Test Performed by: [facility] - [address] [address] [employer] Supervisor: Lisset Coleman Ph.D.; CLIA# [id number] MML MISC BLD Reviewed date:09/27/2025 09:21:41 PM Interpretation: Performing Lab:[facility] , [address] [place] [address]. [place] [address] Notes/Report: AB2GP Beta-2 Glycoprotein 1 Antibodies, IgA, Serum Keyword See Below AB2GP Beta-2 Gl ycoprotein 1 Antibodies, IgA, Serum Misc Result See Footnote Test Result Flag Unit RefValue Beta 2 GP1 Ab IgA, S <9.4 LAURY -- REFERENCE VALUE -- <15.0 (Negative) Test Performed by: [facility] [place] [address] [employer] Supervisor: Lisset Coleman Ph.D.; CLIA# [id number] Reason For Referral No Information Medications Medication SIG (Take, Route, Frequency, Duration) Notes Start Date End Date Status Vitamin C 500 MG as directed Orally Active ZyrTEC Allergy 10 MG 1 tablet Orally Once a day Active Celecoxib 200 MG 1 Orally Once a day; Duration: 30 days As needed 10/09/2025 12/08/2025 Active Iron 325 (65 Fe) MG 1 tablet Orally Thre e times a Week Active Adderall 20 MG 1 tablet Orally Twic e a day Active Vitamin D 50 MCG (2000 UT) 1 tablet Orally Once a day A ctive Vitamins/Minerals nutrafol daily Active FLUoxetine HCl 20 MG 1 capsule Orally On ce a day Active Prolia 60 MG/ML 1 mL Subcutaneous Active Social History Tobacco Use: Social History Observation Description Date Details (start date - stop date) Never Smoker NA - NA Household Question Answer Notes Marital status: Tobacco Control (Standard) Question Answer Notes Tobacco use: Nonsmoker Problems Problem Type SNOMED Code ICD Code Onset Dates Problem Status W/U Status Risk Notes Problem Systemic lupus erythematosus (35042125) Systemic lupus erythematosus, unspecified SLE type, unspecified organ involvement status (M32.9) Active confirmed Problem Postmenopausal osteoporosis (480813569) Postmenopausal osteoporosis (M81.0) Active confirmed Vital Signs Heart Rate 88 /min 09/23/2025 Temperature 98.0 degrees Fahrenheit 09/23/2025 Height-cm 149.86 cm 09/23/2025 Oximetry 98 % 09/23/2025 Blood pressure diastolic 70 mm Hg 09/23/2025 Weight-kg 53.57 kg 09/23/2025 Height 59 in 09/23/2025 Blood pressure systolic 110 mm Hg 09/23/2025 Weight 118.1 lbs 09/23/2025 BMI 23.85 kg/m2 09/23/2025 Encounters Encounter Location Date Provider Diagnosis [facility] [address] [place] [address] 09/23/2025 Aniyah Du ISABEL positive R76.89 ; Multiple joint pain M25.50 ; Postmenopausal osteoporosis M81.0 ; Family history of lupus erythematosus Z84.0 and Family history of rheumatoid arthritis Z82.61 [facility] [address] [facility] [address] [place] [address] 10/09/2025 Aniyah Du ISABEL positive R76.89 ; Systemic lupus erythematosus, unspecified SLE type, unspecified organ involvement status M32.9 ; Multiple joint pain M25.50 ; Postmenopausal osteoporosis M81.0 and Liver enzyme elevation R74.8 [facility] [address] [facility] [address] [address] [place] [address] 07/23/2025 Aniyah Du Assessments Encounter Date Diagnosis (ICD Code) Assessment Notes Treatment Notes Treatment Clinical Notes Section Notes 09/23/2025 Multiple joint pain (ICD-10 - M25.50) 60 year old female with family history of lupus and rheumatoid arthritis. She was diagnosed with lupus years ago. She did not tolerate plaquenil. Labs will be ordered. Xrays of the hands will be ordered. Follow up visit will be scheduled. Thank you for referring this patient. cc Dr. Avelino Gill 09/23/2025 ISABEL positive (ICD-10 - R76.89) 60 year old female with family history of lupus and rheumatoid arthritis. She was diagnosed with lupus years ago. She did not tolerate plaquenil. Labs will be ordered. Xrays of the hands will be ordered. Follow up visit will be scheduled. Thank you for referring this patient. cc Dr. Avelino Gill 10/09/2025 Systemic lupus erythematosus, unspecified SLE type, unspecified organ involvement status (ICD-10 - M32.9) labs discussed, meets criteria of lupus, did not tolerate plaquenil, she does not want another DMARDs, will start celebrex 200mg prn, return in 6 months 10/09/2025 ISABEL positive (ICD-10 - R76.89) labs discussed, meets criteria of lupus, did not tolerate plaquenil, she does not want another DMARDs, will start celebrex 200mg prn, return in 6 months 10/09/2025 Multiple joint pain (ICD-10 - M25.50) labs discussed, meets criteria of lupus, did not tolerate plaquenil, she does not want another DMARDs, will start celebrex 200mg prn, return in 6 months 09/23/2025 Postmenopausal osteoporosis (ICD-10 - M81.0) 60 year old female with family history of lupus and rheumatoid arthritis. She was diagnosed with lupus years ago. She did not tolerate plaquenil. Labs will be ordered. Xrays of the hands will be ordered. Follow up visit will be scheduled. Thank you for referring this patient. cc Dr. Avelino Gill 09/23/2025 Family history of lupus erythematosus (ICD-10 - Z84.0) 60 year old female with family history of lupus and rheumatoid arthritis. She was diagnosed with lupus years ago. She did not tolerate plaquenil. Labs will be ordered. Xrays of the hands will be ordered. Follow up visit will be scheduled. Thank you for referring this patient. cc Dr. Avelino Gill 10/09/2025 Postmenopausal osteoporosis (ICD-10 - M81.0) labs discussed, meets criteria of lupus, did not tolerate plaquenil, she does not want another DMARDs, will start celebrex 200mg prn, return in 6 months 10/09/2025 Liver enzyme elevation (ICD-10 - R74.8) labs discussed, meets criteria of lupus, did not tolerate plaquenil, she does not want another DMARDs, will start celebrex 200mg prn, return in 6 months 09/23/2025 Family history of rheumatoid arthritis (ICD-10 - Z82.61) 60 year old female with family history of lupus and rheumatoid arthritis. She was diagnosed with lupus years ago. She did not tolerate plaquenil. Labs will be ordered. Xrays of the hands will be ordered. Follow up visit will be scheduled. Thank you for referring this patient. cc Dr. Aevlino Gill Plan Of Treatment Pending Test Test Name Order Date X ray : Hands, bilateral 09/23/2025 Beta 2 Glycoprotein IgA Ab 09/23/2025 Cardiolipin Ab (IgA) 09/23/2025 Cardiolipin Ab (Ig G) 09/23/2025 Cardiolipin Ab (Ig M) 09/23/2025 Next Appt Details Provider Name:Aniyah Justin, 04/02 10:00:00 AM, [address] [address] [facility] [address], [place], [address], Insurance Providers Payer Name Payer Address Payer Phone Subscriber Number Group Number Insured Name Patient Relationship to Insured Coverage Start Date Coverage End Date [place] [address] [place] [address] [id number] Aggie Ortiz Self - patient is the insured Medical (General) History Medical History History ICD Code positive ISABEL, lupus, ADHD, iron deficien cy, osteoporosis Surgical History Surgery Date(Month/Year) cholecystectomy
== END 2025-10-22 14:50 | disposition home or self-care (01) ==
PROVIDERS: PCP Family Medicine; Visit Provider Emergency Medicine
DX: M62.830 Muscle spasm of back (principal); R07.9 Chest pain, unspecified
CPT/HCPCS: 36415; 85380